=== PATIENT | female | born 1935 | race Caucasian/White ===

== ENCOUNTER → 2023-11-18 12:22 | Outpatient (REF) | payer MEDICARE, SELFPAY | LOC: WOUND 12:22 | PROVIDERS: ATTENDING PHYSICIAN Surgery; FAMILY PHYSICIAN Internal Medicine | DX: S81.811A Laceration without foreign body, right lower leg, initial encounter (principal); L97.812 Non-pressure chronic ulcer of other part of right lower leg with fat layer exposed; I10 Essential (primary) hypertension; M31.6 Other giant cell arteritis; D64.9 Anemia, unspecified; X58.XXXA Exposure to other specified factors, initial encounter | CPT/HCPCS: 99214 ==

== ENCOUNTER 2023-11-24 13:39 | Inpatient (IN) | payer MEDICARE, SELFPAY ==
[2023-11-24] VITALS (16 sets, daily range): BP systolic 97–157; BP diastolic 44–92; PULSE 85–86; BMI 21.0
--- NOTE | 2023-11-24 10:02 | ED.GENMED ---
History of Present Illness
General
Chief Complaint: Weakness
Time Seen by Provider: 11/24/23 10:01
Travel History
Have you had any contact with someone who has COVID-19?: No
Do you have any symptoms of coronavirus? Fever > 100 degrees, chills, cough, shortness of breath, sore throat, loss of taste or smell, muscle aches, or headache?: No
History of Present Illness
History of Present Illness:
HPI: Patient presents due to weakness. This has been getting worse over the past week. She intermittently has diarrhea and recently took Imodium and now is been having some more constipation. She has had anemia in the past related to GI blood
loss. 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
EXAM:
GENERAL: The patient appears generally weak and debilitated
HEENT: Slightly dry oral mucosa, conjunctival
CARDIOVASCULAR: 2 out of 6 systolic murmur in the upper sternal borders, normal heart rate, regular rhythm, No chest wall tenderness
PULMONARY: No respiratory distress, breath sounds are clear and equal
ABDOMEN: Soft with no peritoneal signs, no tenderness, there is heme positive brown stool on digital rectal examination with firm stool noted in the rectal
NEUROLOGIC: Fair strength all extremities, no coordination deficits
PSYCHIATRIC: Appropriate mental status, normal insight and judgement
EXTREMITIES: Nontender, no edema, moves all extremities equally
SKIN: Appears pale
TIME OF INITIAL ENCOUNTER: 10 AM
NUMBER AND COMPLEXITY OF PROBLEMS ADDRESSED AT THE ENCOUNTER
� Chronic conditions affecting care: Hypothyroid, high blood pressure, hyperlipidemia, has had giant cell arteritis
� Acute Exacerbation and/or Progression of Chronic Illness: This is an acute problem
� Differential Diagnosis includes: Anemia, failure to thrive, viral syndrome, electrolyte normality, thyroid disease
AMOUNT AND/OR COMPLEXITY OF DATA TO BE REVIEWED AND ANALYZED
� I performed an independent evaluation of and my interpretation is:
EKG: Sinus 81, leftward axis deviation, nonspecific ST abnormality, no significant change from 06/15/2022
CT:
X-rays:
Laboratory Studies: White count 14.1, hemoglobin 7.8, sed rate is 123, bicarb 10, BUN 44, creatinine 1.2, iron 33
Other:
� Review of other/old records: The patient was admitted here in June 2022 with peptic ulcer disease causing occult GI blood loss and required 1 unit of blood transfusion at that time (hemoglobin at that time started to 8.8
then dropped to 7.5 and most recent hemoglobin in [facility] is 12.1 on 02/14/2023)
� Clinical information was obtained by an independent historian: I spoke to daughter at bedside as well as
� Prescriptions/Medications Considered but not given:
� Further testing considered but not performed:
RISK OF COMPLICATIONS AND/OR MORBIDITY OR MORTALITY OF PATIENT MANAGEMENT
� Social determinants of health affecting care: Lives at home
� Discussion with other providers: Hospitalist for admission 11 AM
� Escalation of care including admission/observation vs risk of discharge considered: Family is concerned of dehydration�was given some IV fluids. She has had GI bleed in the past resulting in anemia�Labs are obtained. At 10:45
AM, signed informed consent for blood transfusion.
Past History
Past History
ED Past Medical History: HTN, Hypercholesterolemia, Other (Giant cell arteritis) and Other ( rheumatic fever, hyperthyroidism, macular degeneration, cataracts, ocular migraine.)
ED Past Surgical History: Orthopedic (Bilateral hip replacements) and Urological (Right Kidney wired in place)
Social History
Tobacco: Non-smoker
Alcohol: Daily (seagram's 7 2-3 oz)
Personal:
Living: with family
Family History
Family History: Other (Breast cancer. Father with a stroke)
Phy Exam
Physical Exam
Physical Exam:
See HPI
Course
Orders/Labs/Results
Orders:
Orders
11/24/23 10:12
0.9% Sodium Chloride 500 ml [Nss] 500 ml IV BOLUS
11/24/23 10:22
Add On- LAB Urgent
Tests Added?: SED Rate please
Type+Screen Urgent
Basic Metabolic Panel Urgent
Complete Blood Count/With Diff Urgent
Erythrocyte Sed Rate Urgent
Comment: SED RATE ADDED ON BY FLOOR 10:20AM 11-24-23
Ferritin Urgent
Comment: IRON PANEL AND FERRITIN ADDED ON BY FLOOR 10:40AM 11-24-23
Iron Urgent
Magnesium Urgent
TSH Reflex To Free T4 Urgent
11/24/23 10:34
* Blood Bank Products Urgent
Blood Bank Products: *Packed RBC Leuko(PRBC's)
Quantity: 1
Transfuse Today: Yes
Reason: Anemia
11/24/23 10:35
Pantoprazole [Protonix IV] 80 mg IV NOW STA
11/24/23 10:40
Add On- LAB Urgent
Tests Added?: iron panel, ferritin
11/24/23 10:54
Diltiazem HCl [Cardizem] 10 mg IV NOW STA
MethylPREDNISolone PF [Solu-Medrol Pf] 125 mg IV NOW STA
11/24/23 11:00
Diltiazem 125 mg/125 ml Nss [Cardizem] 125 mg in 125 ml IV PER PROTOCOL
Initial dose in mg/hr, then titrate:: 10
Titrate to keep:: Heart rate 80-100 bpm
Titrate by mg/hr:: 5 mg/hr
Frequency of titrations (minutes):: 15
Maximum dose in mg/hr:: 15
11/24/23 11:07
Electrocardiogram (*1) Urgent
Reason for Study: Shortness of Breath
EKG- Treatment ONCE
Abnormal Lab Results
11/24/23
10:22
WBC 14.1 H 10^3/uL
(4.8-10.8)
RBC 2.22 L 10^6/uL
(4.20-5.40)
Hgb 7.8 L g/dL
(12.0-16.0)
Hct 22.6 L %
(37.0-47.0)
MCV 101.8 H fL
(81.0-99.0)
MCH 35.1 H pg
(27.0-31.0)
Plt Count 425 H 10^3/uL
(130-400)
Abs Immat Gran (auto) 0.1 H 10^3/uL
(0-0.05)
Absolute Neuts (auto) 11.9 H 10^3/uL
(1.4-6.5)
Absolute Lymphs (auto) 0.7 L 10^3/uL
(1.2-3.4)
Absolute Monos (auto) 1.2 H 10^3/uL
(0.1-0.6)
Immature Gran % 0.9 H %
(0-0.5)
Neutrophils % 84.2 H %
(42.2-75.2)
Lymphocytes % 5.3 L %
(20.5-51.1)
ESR 123 H mm/hour
(0-20)
Chloride 113 H mmol/L
(98-107)
Carbon Dioxide 10 L* mmol/L
(22-30)
BUN 44 H mg/dl
(7-17)
Creatinine 1.2 H mg/dL
(0.6-1.0)
Iron 33 L ug/dl
(37-170)
Crossmatch IS Only See Detail
11/24/23 10:22
11/24/23 10:22
Vital Signs
Initial and Last Documented VS:
Initial Vital Signs
Temp Pulse Resp BP Pulse Ox
98.9 F 95 16 107/62 98
11/24/23 09:53 11/24/23 09:53 11/24/23 09:53 11/24/23 09:53 11/24/23 09:53
Last Documented Vital Signs
Temp Pulse Resp BP Pulse Ox
98.9 F 95 16 107/62 98
11/24/23 09:53 11/24/23 09:53 11/24/23 09:53 11/24/23 09:53 11/24/23 09:53
*Critical Care Note
Total Time (30-74mins, 75-104mins- exclusive of procedures): Not Applicable
ED Attending Note
-
Portions of this chart may have been created with voice recognition software.� Occasional wrong word or��sound alike� substitutions may have occurred due to the inherent limitations of voice recognition software.
Discharge Plan
Departure
Patient Disposition: Admit
Date of Disposition: 11/24/23
Time of Disposition: 11:04
Presentation/result/management discussed w/ accepting MD/DO: Hospitalist
Discharge Problem:
Anemia due to GI blood loss
Prescriptions:
No Action
acetaminophen [Tylenol Extra Strength] 500 MG tablet
500 mg PO Q6HPRN PRN (Reason: mild pain)
simvastatin 40 MG tablet
40 mg PO QPM
vitamin E 400 UNIT capsule
400 unit PO DAILY@1200
xd-pzl-DS-Ou-Nw-pwlcvrg-lutein 1 EACH tablet
1 tab PO DAILY@1200
ascorbic acid (vitamin C) 500 MG capsule
500 mg PO DAILY@1200
alendronate 70 MG tablet
70 mg PO WE
cholecalciferol (vitamin D3) [Vitamin D3] 25 MCG capsule
25 mcg PO DAILY@1200
docosahexaenoic acid-epa 1 CAP capsule
1 cap PO DAILY@1200
Rhopressa 2.5 ML drops
1 drp BOTH EYES HS
prednisone 10 MG tablet
4 mg PO DAILY
aspirin 81 mg Tablet,Delayed Release (Dr/Ec)
81 mg PO DAILY@1200
dorzolamide-timolol 22.3-6.8 mg/mL drops
1 drp BOTH EYES BID
mupirocin 2 % ointment
1 applic TOPICAL BID
Rx Instructions:
Apply to legs
metoprolol succinate 25 MG tablet extended release 24 hr
12.5 mg PO DAILY
melatonin 10 mg Tablet
10 mg PO HS PRN (Reason: sleep)
tramadol 50 mg Tablet
25 mg PO Q6HPRN PRN (Reason: sev pain) 3 Days Qty: 15 0RF
sucralfate [Carafate] 100 mg/mL suspension
10 ml PO ACHS Qty: 1000 1RF
pantoprazole [Protonix] 40 mg tablet,delayed release (DR/EC)
40 mg PO BID 30 Days Qty: 60 1RF
Referrals:
Curtis Mary MD [Family Provider] -
Interventions
Interventions:
*ED COVID-19 Vaccine History Last Done: 11/24/23 09:53
[2023-11-24 10:27] LABS: % Basophils 0.2 % (0-2); % Eosinophils 0.7 % (0-6); % Immature Granulocytes 0.9 % (0-0.5); % Lymphocytes 5.3 % (20.5-51.1); % Monocytes 8.7 % (1.7-9.3); % Neutrophils 84.2 % (42.2-75.2); Absolute Eosinophils 0.1 10^3/uL (0-0.7); Absolute Immature Granulocytes 0.1 10^3/uL (0-0.05); Absolute Lymphocytes 0.7 10^3/uL (1.2-3.4); Absolute Monocytes 1.2 10^3/uL (0.1-0.6); Absolute Neutrophils 11.9 10^3/uL (1.4-6.5); Hematocrit 22.6 % (37.0-47.0); Hemoglobin 7.8 g/dL (12.0-16.0); Mean Corp Hgb Conc. 34.5 g/dL (33.0-37.0); Mean Corpuscular Hgb 35.1 pg (27.0-31.0); Mean Corpuscular Volume 101.8 fL (81.0-99.0); Mean Platelet Volume 9.3 fL (7.4-10.4); Nucleated Red Blood Cells % 0.1 %; Platelet Count 425 10^3/uL (130-400); Red Blood Cell Count 2.22 10^6/uL (4.20-5.40); Red Cell Dist. Width 14.5 % (11.5-14.5); White Blood Cell Count 14.1 10^3/uL (4.8-10.8)
[2023-11-24] MEDS: NSS 500 IV (10:31)
[2023-11-24 10:51] LABS: Blood Urea Nitrogen 44 mg/dl (7-17); Calcium 9.6 mg/dl (8.4-10.2); Carbon Dioxide 10 mmol/L (22-30); Chloride 113 mmol/L (98-107); Glucose 99 mg/dl (70-99); Magnesium 2.2 mg/dl (1.6-2.3); Potassium 3.6 mmol/L (3.5-5.1); Sodium 141 mmol/L (135-145); eGFR 43.54
[2023-11-24 10:54] LABS: Erythrocyte Sed Rate 123 mm/hour (0-20)
[2023-11-24 10:59] LABS: Iron 33 ug/dl (37-170)
[2023-11-24] MEDS: PROTONIX IV 80 MG IV (11:51)
--- NOTE | 2023-11-24 12:32 | HPS.HSE ---
Family Physician
-
Family Physician: Curtis Mary
Chief Complaint
-
Weakness and fatigue
History of Present Illness
Patient is an 80 female with a past medical cancer arthritis on chronic prednisone, hypertension, history of cirrhosis, history of peptic ulcer disease who presents to the emergency department with 1 week of worsening weakness and fatigue and
illness.
Family provided history at the bedside although patient was communicative as well. Reported that she had a peptic ulcer requiring transfusion in 2021. Last CBC was about 8 months ago with hemoglobin of 12.1. She has been on prednisone for GCA
chronically and is currently taking 3 mg daily. Family reported that she has been declining over the last week with increasing dyspnea on exertion. Patient reports feeling weak. She reports lightheadedness and dizziness. She denies palpitations.
She denies chest pain. Patient was recently treated for a large lower extremity excoriative wound. She denies abdominal pain, nausea, vomiting. She does have intermittent constipation and diarrhea. She is unable to tell whether there is pain
any hematochezia. Family denies any melena. She is not on any supplementation for iron but I believe she has been chronically anemic. Patient is currently on ibuprofen 3 times daily to manage chronic pain. Denies aspirin.
On arrival in the emergency department blood pressure was 102/62, pulse was 95, she was satting 98% on room air. She was afebrile. ECG shows normal sinus rhythm with a rate of [address] or T wave changes. Blood count remarkable for
hemoglobin of 7.8 and a platelet count of 425. Chemistries notable for a BUN of 44, creatinine of 1.2 and bicarb of 10. The anion gap was 18. ESR was elevated 123. Rectal exam revealed positive Hemoccult.
Medical History
Past Medical History
Past Medical History: Reports HTN
Additional Past Medical History:
Giant cell arthritis with vision loss
Duodenal ulcer 2021
Past Surgical History: Reports None
Social History
Tobacco: Non-smoker
Alcohol: None
Drug: None
Personal:
Living: With Family
Employment: Retired
Family History
Family History: Not pertinent
Allergies / Home Medications
Allergies reflects when Allergies were last updated in [employer].
Home Medications with original date entered in [employer]
Allergy/Medication List:
Allergies
Allergy/AdvReac Type Severity Reaction Status Date / Time
Penicillins Allergy Hives Verified 11/24/23 09:56
Sulfa (Sulfonamide Allergy VISUAL Verified 11/24/23 09:56
Antibiotics) DISTURBANCES
Home Medications
acetaminophen 500 mg tablet (Tylenol Extra Strength) 500 mg PO Q6HPRN PRN mild pain 09/27/11
simvastatin 40 mg tablet 40 mg PO QPM High cholesterol 09/27/11
vitamin E 268 mg (400 unit) capsule 400 unit PO DAILY@1200 Supplement 09/27/11
alendronate 70 mg tablet 70 mg PO WE osteoporosis 06/18/21
cholecalciferol (vitamin D3) 25 mcg (1,000 unit) capsule (Vitamin D3) 25 mcg PO DAILY@1200 Supplement 06/18/21
netarsudil 0.02 % eye drops (Rhopressa) 1 drp BOTH EYES HS Eye condition 06/18/21
prednisone 3 mg tablet PO DAILY Anti-inflammatory 06/18/21
dorzolamide 22.3 mg-timolol 6.8 mg/mL eye drops 1 drp BOTH EYES BID Eye condition 06/15/22
metoprolol succinate 12.5 mg tablet,extended release 24 hr 12.5 mg PO DAILY Blood pressure 06/15/22
Review of Systems
-
History Source: Patient
Constitutional: Reports Fatigue
EENT: Reports No Symptoms
Respiratory: Reports No Symptoms
Cardiac: Reports No Symptoms
Abdomen/GI: Reports Diarrhea and Constipated
: Reports No Symptoms
Musculoskeletal: Reports Joint Pain
Skin: Reports Other (Right lower extremity wound)
Neurological: Reports Weakness
Endocrine: Reports No Symptoms
Psych: Reports No Symptoms
Physical Exam
Vital Signs
Vital Signs
Temp Pulse Resp BP Pulse Ox
97.9 F 91 20 109/62 98
11/24/23 12:28 11/24/23 12:28 11/24/23 12:28 11/24/23 12:28 11/24/23 12:28
Physical Exam
General: Comfortable and Conversant
HEENT: NormoCephalic, Moist mucous membranes and PERRLA
Respiratory: Clear
Cardiac: S1/S2 and Regular Rhythm
Breast: Deferred by me
GI: Soft, Non Tender, Non Distended and Normal Bowel Sounds
Rectal: Hem Positive
Genito-urinary: Deferred by me
Musculoskeletal: No Clubbing, No Cyanosis and No Edema
Skin: Warm and Lesions
Neuro: AO x 3
Hematologic/Lymphatic: No Lymphadenopathy
Psych: Calm
Laboratory Results
-
11/24/23 10:22
11/24/23 10:22
Laboratory Results
pH Cancelled 11/24/23 10:53
pCO2 Cancelled 11/24/23 10:53
pO2 Cancelled 11/24/23 10:53
HCO3 Cancelled 11/24/23 10:53
Data Reviewed
-
Medical Tests (Nuc Med, Echo, EKG etc): Image Personally Visualized and interpreted
Lab Data: Labs Reviewed by me
Old Records: Reviewed
Impression/Plan
-
IMPRESSION:
PLAN:
1. Symptomatic Anemia and GI bleed - Weakness likely secondary to symptomatic anemia. Hgb 7.8 down from 12. Iron is low. + Occult. Suspect exacerbation of peptic/duodenal ulcer from chronic daily NSAIDs and steroids or possibly gastritis.
Hemodynamically stable at this time.
- admit to telemetry
- transfuse for goal Hgb > 8
- trend H& H q 8 for now
- Protonixgtt
- holding ibuprofen
- clear liquid as tolerated
- hydration with LR
- d/w GI, EGD in am
2. Giant cell arthritis - Patient on chronic steroids 3mg. Last ESR was 20 in August. Now 123. Weakness and fatigue but no headache, new vision changes or joint pains.
- continue prednisone 3 for
- will consult rheum (patient follows with Dr. Cortés)
3. Hypovolemia - Decreased PO and slow blood loss. Renal function slightly worsened from baseline
- LR at 80ml/hr for now
- hold beta blockade
DVT PPX: w/ SCDs for now
Codes Status: DNR
--- NOTE | 2023-11-24 13:38 | CON.GI ---
Consultation
-
Date/Time Consultation Requested: 11/24/23 10:39am
Date/Time Consultation Performed: 11/24/23 1:39pm
Requesting Provider: Rogelio Echevarria
Performing Provider: Marcus Adamson
Reason for Consultation: Acute blood loss anemia
Medical History
Chief Complaint / HPI
Chief Complaint: Acute blood loss anemia
History of Present Illness:
Patient is an 87-year-old female who presents with weakness and a hemoglobin of 7.8. Her stool in the ER was heme positive brown. She has a history of GI bleed due to a duodenal ulcer in 2021 while she was taking Aleve. She has been taking
ibuprofen 400 mg about 2-3 times per day over the last several weeks for leg pain. She had a fall about a week ago and injured her right leg and is currently getting treatment at the wound center. Her also reports she has had constipation
problems after she took Imodium when she had diarrhea. She has not had bowel movement for the last 6 days. She reports some upper abdominal pain around her ribs bilaterally.
Past Medical History
Past Medical History: HTN, Hypercholesterolemia and Other (Giant cell arteritis on prednisone and Actemra infusions, GI bleed due to DU while taking Aleve in 2021)
Past Surgical History: Other (b/l hip replacement 2007 right, 2012, left, tonsilectomy, cataracts removed 2009)
Social History
Tobacco: Non-Smoker
Alcohol: None
Drug: None
Family History
Family History: Reviewed & Not Pertinent
Allergies / Home Medications
Allergy/AdvReac Type Severity Reaction Status Date / Time
Penicillins Allergy Hives Verified 11/24/23 09:56
Sulfa (Sulfonamide Allergy VISUAL Verified 11/24/23 09:56
Antibiotics) DISTURBANCES
Medication Instructions Recorded
acetaminophen 500 mg tablet 1,000 mg PO Q4H 09/27/11
(Tylenol Extra Strength)
simvastatin 40 mg tablet 40 mg PO QPM High cholesterol 09/27/11
alendronate 70 mg tablet 70 mg PO WE@0800 osteoporosis 06/18/21
aspirin 81 mg tablet,delayed 81 mg PO DAILY Blood clot 06/15/22
release prevention/tx
dorzolamide 22.3 mg-timolol 6.8 1 drp BOTH EYES BID Eye condition 06/15/22
mg/mL eye drops
metoprolol succinate 25 mg 12.5 mg PO DAILY Blood pressure 06/15/22
tablet,extended release 24 hr
Metamucil 3 tab PO BID 11/24/23
docusate sodium 100 mg capsule 100 mg PO DAILY 11/24/23
(Colace)
ibuprofen 200 mg tablet 400 mg PO TIDPRN PRN mild pain 11/24/23
loperamide 2 mg capsule 4 mg PO BIDPRN PRN diarrhea 11/24/23
netarsudil 0.02 % eye drops 1 drp BOTH EYES DAILY@2100 11/24/23
(Rhopressa)
polyethylene glycol 3350 17 gram 17 g PO DAILY PRN constipation 11/24/23
oral powder packet (Miralax)
prednisone 1 mg tablet 3 mg PO DAILY 11/24/23
therapeutic multivitamin 1 tab PO DAILY 11/24/23
Review of Systems
-
All other systems: A 12 pt ROS was Negative except as stated above in HPI
Vital Signs
Temp Pulse Resp BP Pulse Ox
98.3 F 89 19 116/63 99
11/24/23 12:46 11/24/23 12:46 11/24/23 12:46 11/24/23 12:46 11/24/23 12:46
Physical Exam
Exam
General: No Apparent Distress
HEENT: Normocephalic and Atraumatic
Respiratory: Non Labored Respirations
GI: Soft, Non Distended and Tender
Results
WBC 14.1 10^3/uL (4.8-10.8) H 11/24/23 10:22
Hgb 7.8 g/dL (12.0-16.0) L 11/24/23 10:22
Hct 22.6 % (37.0-47.0) L 11/24/23 10:22
MCV 101.8 fL (81.0-99.0) H 11/24/23 10:22
Plt Count 425 10^3/uL (130-400) H 11/24/23 10:22
Absolute Neuts (auto) 11.9 10^3/uL (1.4-6.5) H 11/24/23 10:22
Sodium 141 mmol/L (135-145) 11/24/23 10:22
Potassium 3.6 mmol/L (3.5-5.1) 11/24/23 10:22
Chloride 113 mmol/L (98-107) H 11/24/23 10:22
Carbon Dioxide 10 mmol/L (22-30) L* 11/24/23 10:22
BUN 44 mg/dl (7-17) H 11/24/23 10:22
Creatinine 1.2 mg/dL (0.6-1.0) H 11/24/23 10:22
Calcium 9.6 mg/dl (8.4-10.2) 11/24/23 10:22
Prior GI Procedures:
EGD:
06/15/22 EGD- Schatzki's ring. Blood clot in stomach. 25mm DU in bulb with pigmented material
10/01/22 EGD- Antral erythema bx neg HP. No ulcer in bulb. Deformity in pylorus from prior ulcer
Assessment / Plan
-
Summary: 88yo female presents with weakness, anemia Hgb 7.8 and heme positive brown stool. She has been taking ibuprofen 400mg BID-TID for last several weeks for leg pain. She had a fall and injured her R leg. She is also on 3mg prednisone daily
for GCA. She had similar presentation in June 2022 found to have DU while taking Aleve. Repeat EGD in September 2022 showed resolution of ulcer
Impression:
Acute blood loss anemia. Heme positive
NSAID use
Hx DU due to Aleve
GCA on prednisone 3mg daily
Recommendations:
NPO
Keep on protonix gtt
Plan EGD tomorrow. Likely NSAID ulcer causing GI bleed
-
-
Thank you for consultation and allowing me to participate in the patient's care. Please call the personal care attendant GI physician during the after hours with any questions or concerns.
[2023-11-24] MEDS: TYLENOL 650 MG PO ×2 (15:24→21:55)
[2023-11-24] MEDS: D5LR 1000 IV (17:43)
--- NOTE | 2023-11-24 18:20 | PTCARENOTE ---
Dr. Cervantes made aware pt. with c/o 7/10 pain in her right lower leg after wound care given and that pt. states she drinks 5 oz of alcohol per night to go to sleep. New orders to follow. Will pass on to oncoming shift nurse.
[2023-11-24 18:23] LABS: Hematocrit 27.3 % (37.0-47.0); Hemoglobin 9.4 g/dL (12.0-16.0)
[2023-11-24 18:56] LABS: Blood Urea Nitrogen 33 mg/dl (7-17); Carbon Dioxide 8 mmol/L (22-30); Chloride 119 mmol/L (98-107); Estimated Creatinine Clearance 37 ml/min; Glucose 83 mg/dl (70-99); Potassium 3.6 mmol/L (3.5-5.1); Sodium 140 mmol/L (135-145); eGFR > 60.00
[2023-11-24] MEDS: ULTRAM 50 MG PO (19:19)
[2023-11-24] MEDS: SODIUM BICARBONATE 1150 MEQ IV (20:09)
[2023-11-24] MEDS: COSOPT EYE DROPS 1 DROP BOTH EYES (20:10)
--- NOTE | 2023-11-24 20:38 | PTCARENOTE ---
ALTERATIONS SUPERVISOR notified of critical carbon dioxide of 8. New orders noted.
[2023-11-24] MEDS: RESTORIL 7.5 MG PO (21:56)
[2023-11-24] MEDS: PROTONIX 100 IV (23:50)
[2023-11-24 23:54] LABS: Blood Urea Nitrogen 30 mg/dl (7-17); Carbon Dioxide 16 mmol/L (22-30); Chloride 115 mmol/L (98-107); Estimated Creatinine Clearance 48 ml/min; Glucose 123 mg/dl (70-99); Potassium 3.4 mmol/L (3.5-5.1); Sodium 142 mmol/L (135-145); eGFR > 60.00
[2023-11-25] VITALS (10 sets, daily range): BP systolic 20–178; BP diastolic 63–111; PULSE 83–114; O2SAT 98
[2023-11-25] MEDS: KCL 160 MEQ IV (00:29)
[2023-11-25 01:56] LABS: Hematocrit 28.3 % (37.0-47.0); Hemoglobin 9.9 g/dL (12.0-16.0); Mean Corpuscular Hgb 32.8 pg (27.0-31.0); Mean Corpuscular Volume 93.7 fL (81.0-99.0); Mean Platelet Volume 9.2 fL (7.4-10.4); Platelet Count 404 10^3/uL (130-400); Red Blood Cell Count 3.02 10^6/uL (4.20-5.40); Red Cell Dist. Width 17.9 % (11.5-14.5); White Blood Cell Count 12.9 10^3/uL (4.8-10.8)
[2023-11-25 02:14] LABS: INR 1.12; PT 14.2 Sec (11.4-14.6)
[2023-11-25 02:21] LABS: Blood Urea Nitrogen 25 mg/dl (7-17); Calcium 8.9 mg/dl (8.4-10.2); Carbon Dioxide 16 mmol/L (22-30); Chloride 116 mmol/L (98-107); Estimated Creatinine Clearance 48 ml/min; Glucose 99 mg/dl (70-99); Potassium 3.6 mmol/L (3.5-5.1); Sodium 140 mmol/L (135-145); eGFR > 60.00
--- NOTE | 2023-11-25 05:53 | PTCARENOTE ---
Patient with no urine output at 0000, bladder scanned for 614 mls, order obtained for straight cath with 600 output. Bladder scanned again this a.m. for 657, straight cathed for 650. Patient tolerated procedure. Urine clear yellow.
[2023-11-25] MEDS: SODIUM BICARBONATE 1150 MEQ IV ×2 (08:22→22:02)
[2023-11-25] MEDS: COSOPT EYE DROPS 1 DROP BOTH EYES ×2 (08:23→19:59)
[2023-11-25] MEDS: TYLENOL 650 MG PO ×3 (08:23→22:02)
[2023-11-25] MEDS: DELTASONE PO (08:34)
--- NOTE | 2023-11-25 09:10 | W.PN.HOSP.TC ---
Today's Communication/Plan
-
Monitor hemoglobin
EGD
Assessment / Plan
Assessment / Plan
Gen-AAOx3, NAD, very frail
HEENT-NC, AT, anicteric, clear oral mm
Neck-supple
CV-reg, no M, +S1/S2
Lungs-clear B/L
Abd-soft, NT, ND
Ext-no edema
Musculoskeletal-no cyanosis, clubbing
Skin-warm and dry
Neuro-grossly non-focal
Psych-calm, cooperative
LOLIS -due to volume depletion. Improved. High anion gap metabolic acidosis noted, improving. Bicarbonate 16 today, anion gap 8.
Symptomatic acute blood loss anemia -transfused 1 unit PRBC 11/23. Hemoglobin improved from 7.8-9.9. Etiology of blood loss anemia likely due to GI bleed in the setting of heme positive stool.
Acute GI bleed -likely due to use of NSAIDs, steroids. GI consulted, awaiting EGD. Continue IV Protonix. Stop NSAIDs.
History of duodenal ulcer -due to use of NSAIDs.
Hypokalemia -improving.
Giant cell arteritis -on chronic prednisone. 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 Can hold off on rheumatology consult for now, recommend outpatient follow-up.
Osteoporosis - on weekly alendronate.
DNR
Anticipated Discharge: > 48 hours
Subjective/Interval History
-
Date of Service: November 25, 2023
Patient seen and examined. No complaints currently.
Objective Data
-
Labs:
Laboratory Results
11/24/23 11/25/23 11/25/23
23:31 01:50 01:50
WBC 12.9 H
Hgb Cancelled 9.9 L
Hct Cancelled
Plt Count
PT
INR
Sodium 142
Potassium 3.4 L
Chloride 115 H
Carbon Dioxide 16 L
BUN 30 H
Creatinine 0.7
Glucose 123 H
Calcium 9.0
11/25/23
01:50
WBC
Hgb
Hct 28.3 L
Plt Count 404 H
PT 14.2
INR 1.12
Sodium 140
Potassium 3.6
Chloride 116 H
Carbon Dioxide 16 L
BUN 25 H
Creatinine 0.7
Glucose 99
Calcium 8.9
Vital Signs:
Vital Signs
Temp Pulse Resp BP Pulse Ox
99.3 F 99 16 152/88 99
11/25/23 07:50 11/25/23 07:50 11/25/23 07:50 11/25/23 07:50 11/25/23 07:50
I&O
11/24/23 11/25/23 11/26/23
06:59 06:59 06:59
Intake Total 970 / 970 1360 / 1360
Output Total 1250 / 1250
Balance -280 / -280 1360 / 1360
Review of Systems
-
History Source: Patient
All other systems: Reviewed and negative
--- NOTE | 2023-11-25 10:39 | W.PN.UPDATE ---
Update Note
Progress Note Update
EGD done
10mm cratered DU in bulb with pigmented material in base
Edge of ulcer was friable with contact bleeding, no bleeding from ulcer base
REC:
Resume diet
Protonix BID x 2 months
Avoid NSAIDs
[2023-11-25] MEDS: FLOMAX 0.400000000000000022 MG PO (11:43)
[2023-11-25] MEDS: PROTONIX IV (11:43)
[2023-11-25] MEDS: ANESTHETIC LOZENGE 1 LOZENGE PO (15:31)
--- NOTE | 2023-11-25 16:45 | CM ---
CM following re: d/c planning
Chart reviewed
CM met with the patient and her spouse at bedside; IA completed
Pt reports she and her spouse [facility]
FACILITY TECHNICIAN patient is assisted at baseline with adls & mobility
Pt has been to [facility] for rehab, has had VN however doesn't recall the agency, and has the following DME items: a raised toilet seat, r/w, chair lift, & bsc
Pt has prescription coverage and rx's are filled at [facility] on [address] [place]
Pt PCP-Curtis Mary
Per PT/OT margie. post d/c recommendation is for SNF
CM will speak with the patient's spouse to see if he'd like a referral sent to [facility] and if he'd like any additional referrals placed
CM will continue to follow patient progress and assist with continued needs at d/c as indicated
PLAN; d/c to SNF when stable
[2023-11-25] MEDS: ULTRAM 50 MG PO (18:35)
[2023-11-25] MEDS: PROTONIX 40 MG PO (19:59)
[2023-11-25] MEDS: RESTORIL 7.5 MG PO (22:02)
[2023-11-26 03:17] VITALS: BP 112/68
[2023-11-26 06:00] VITALS: BMI 20.9
[2023-11-26 07:00] VITALS: BP 111/64
[2023-11-26] MEDS: TYLENOL 650 MG PO ×2 (07:11→16:49)
[2023-11-26] MEDS: DELTASONE 3 MG PO (07:55)
[2023-11-26] MEDS: COSOPT EYE DROPS 1 DROP BOTH EYES ×2 (07:55→21:34)
[2023-11-26] MEDS: PROTONIX 40 MG PO ×2 (07:55→21:34)
[2023-11-26] MEDS: FLOMAX 0.400000000000000022 MG PO (07:55)
[2023-11-26 08:15] LABS: % Basophils 0.3 % (0-2); % Eosinophils 1.4 % (0-6); % Immature Granulocytes 0.5 % (0-0.5); % Lymphocytes 11.2 % (20.5-51.1); % Monocytes 11.4 % (1.7-9.3); % Neutrophils 75.2 % (42.2-75.2); Absolute Eosinophils 0.1 10^3/uL (0-0.7); Absolute Immature Granulocytes 0.1 10^3/uL (0-0.05); Absolute Lymphocytes 1.1 10^3/uL (1.2-3.4); Absolute Monocytes 1.1 10^3/uL (0.1-0.6); Absolute Neutrophils 7.1 10^3/uL (1.4-6.5); Hematocrit 26.5 % (37.0-47.0); Hemoglobin 9.3 g/dL (12.0-16.0); Mean Corp Hgb Conc. 35.1 g/dL (33.0-37.0); Mean Corpuscular Hgb 32.6 pg (27.0-31.0); Mean Platelet Volume 9.5 fL (7.4-10.4); Nucleated Red Blood Cells % 0 %; Platelet Count 391 10^3/uL (130-400); Red Blood Cell Count 2.85 10^6/uL (4.20-5.40); Red Cell Dist. Width 17.7 % (11.5-14.5); White Blood Cell Count 9.5 10^3/uL (4.8-10.8)
[2023-11-26 08:26] LABS: Blood Urea Nitrogen 11 mg/dl (7-17); Calcium 8.1 mg/dl (8.4-10.2); Carbon Dioxide 29 mmol/L (22-30); Chloride 102 mmol/L (98-107); Estimated Creatinine Clearance 56 ml/min; Glucose 107 mg/dl (70-99); Potassium 3.1 mmol/L (3.5-5.1); Sodium 136 mmol/L (135-145); eGFR > 60.00
--- NOTE | 2023-11-26 09:01 | W.PN.HOSP.TC ---
Today's Communication/Plan
-
Discharge planning
Assessment / Plan
Assessment / Plan
Gen-AAOx3, NAD, very frail
HEENT-NC, AT, anicteric, clear oral mm
Neck-supple
CV-reg, no M, +S1/S2
Lungs-clear B/L
Abd-soft, NT, ND
Ext-no edema
Musculoskeletal-no cyanosis, clubbing
Skin-warm and dry
Neuro-grossly non-focal
Psych-calm, cooperative
LOLIS -due to volume depletion. Improved. High anion gap metabolic acidosis noted, improving. Bicarbonate 16 today, anion gap 8.
Symptomatic acute blood loss anemia -transfused 1 unit PRBC 11/23. Hemoglobin improved to 9.3. Stable. Etiology of blood loss anemia likely due to GI bleed in the setting of heme positive stool.
Acute GI bleed -likely due to use of NSAIDs, steroids. EGD demonstrated 10 mm duodenal ulcer in bulb with contact bleeding around the edge. Continue Protonix twice daily for 2 months as per GI. Avoid NSAIDs. Discussed with patient and .
Follow-up as outpatient with GI.
History of duodenal ulcer -due to use of NSAIDs.
Hypokalemia -improving.
Giant cell arteritis -on chronic prednisone. 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 Can hold off on rheumatology consult for now, recommend outpatient follow-up.
Osteoporosis - on weekly alendronate.
DNR
Dispo -medically stable for discharge to SNF. Case management aware. Updated on the phone.
Anticipated Discharge: Within 24 hours
Subjective/Interval History
-
Date of Service: November 26, 2023
Patient seen and examined. No complaints.
Objective Data
-
Labs:
Laboratory Results
11/26/23
06:44
WBC 9.5
Hgb 9.3 L
Hct 26.5 L
Plt Count 391
Sodium 136
Potassium 3.1 L
Chloride 102
Carbon Dioxide 29
BUN 11
Creatinine 0.6
Glucose 107 H
Calcium 8.1 L
Vital Signs:
Vital Signs
Temp Pulse Resp BP Pulse Ox
98.7 F 85 18 111/64 97
11/26/23 07:00 11/26/23 07:00 11/26/23 07:00 11/26/23 07:00 11/26/23 07:00
I&O
11/25/23 11/26/23 11/27/23
06:59 06:59 06:59
Intake Total 970 / 970 3760 / 3760
Output Total 1250 / 1250 1100 / 1100
Balance -280 / -280 2660 / 2660
Review of Systems
-
History Source: Patient
All other systems: Reviewed and negative
[2023-11-26 09:25] LABS: Magnesium 1.8 mg/dl (1.6-2.3)
[2023-11-26 09:30] VITALS: BP 108/48; BP 121/63; PULSE 81; O2SAT 95
[2023-11-26] MEDS: KCL 40 MEQ PO (10:18)
[2023-11-26] MEDS: MIRALAX 17 GRAMS PO (10:18)
[2023-11-26] MEDS: ULTRAM 50 MG PO ×2 (10:21→21:34)
--- NOTE | 2023-11-26 10:56 | W.PN.GI.CBS2 ---
Addendum entered and electronically signed by Danny Heath MD 11/26/23 18:36:
I saw and examined the patient.
The SENIOR MANUFACTURING TEST ENGINEER or PA's note was reviewed and I agree with the note.
Comment: 88-year-old female presenting with iron deficiency anemia with brown positive stool. Found to have duodenal ulcer likely secondary to NSAIDs and prednisone. Hemoglobin is stable, no further bleeding. Discussed with patient and family at
bedside, recommend avoiding NSAIDs, continue PPI twice daily twice a day for 2 months then daily indefinitely. Okay from GI point of view for discharge. GI will sign off. Please call with any questions or issues.
Original Note:
Today's Communication / Plan
-
PPI twice daily x 2 months then daily
Solid diet
Assessment / Plan
-
Summary: 88yo female presents with weakness, anemia Hgb 7.8 and heme positive brown stool. She has been taking ibuprofen 400mg BID-TID for last several weeks for leg pain. She had a fall and injured her R leg. She is also on 3mg prednisone daily
for GCA. She had similar presentation in June 2022 found to have DU while taking Aleve. Repeat EGD in September 2022 showed resolution of ulcer
Impression:
Acute GI bleed secondary to duodenal ulcer in bulb
Acute blood loss anemia. Heme positive
NSAID use
GCA on prednisone 3mg daily
Recommendations:
Continue pantoprazole 40 mg p.o. twice daily x 2 months. Patient will then be on long-term steroids. Patient has chronic GERD symptoms. Discussed with patient, [id number] who is an RN and patient . Would prefer to stay on PPI
long-term daily.
To discuss with director banking alternate pain management recommendations. Avoid NSAIDs.
To start solid diet this morning.
Subjective
Subjective
Date of Service: November 26, 2023
Patient with no current GI complaints. No bowel movement. Hemoglobin currently 9.3 down from 9.9 yesterday. Patient status post EGD yesterday with 10 mm duodenal ulcer in bulb with contact bleeding around edge. Discussed with patient and
at length to avoid NSAIDs. Patient on chronic prednisone due to rheumatological issues as well as giant cell arteritis. To discuss with rheumatology pain control in future as well.
Objective
Data Reviewed
Laboratory Data:
Laboratory Results
11/26/23 06:44
11/26/23 06:44
Laboratory Results
PT 14.2 Sec (11.4-14.6) 11/25/23 01:50
INR 1.12 11/25/23 01:50
Magnesium 1.8 mg/dl (1.6-2.3) 11/26/23 06:44
Vital Signs and I&O:
Vital Signs
Temp Pulse Resp BP Pulse Ox
98.7 F 85 18 111/64 97
11/26/23 07:00 11/26/23 07:00 11/26/23 07:00 11/26/23 07:00 11/26/23 07:00
I&O
11/25/23 11/26/23 11/27/23
06:59 06:59 06:59
Intake Total 970 / 970 3760 / 3760
Output Total 1250 / 1250 1100 / 1100
Balance -280 / -280 2660 / 2660
Physical Exam
Physical Exam
HEENT: Anicteric
Cardiology: Normal Sinus Rhythm
Pulmonary: Clear
GI: Soft, Non Distended, Non Tender and Normal Bowel Sounds
Neuro: Non Focal
--- NOTE | 2023-11-26 11:15 | WOUNDNOTE ---
WON RN note: Patient admitted with anemia due to GI bleed.
See H&P for complete history.
PMH: Scoliosis,giant cell arteritis, HTN, duodenal ulcer, osteoarthritis, psoriasis, B/L hip replacements, leg wounds.
Wound Location and type/assessment: Patient admitted with: Laceration to R leg s/p fall, seen recently at [facility]. Reviewed current wound care with nurse Germania at wound center. at bedside confirmed he has been doing wound care and
applying Tubigrip daily. Wound is clean at base with red erythema surrounding, moderate serosanguineous drainage, no odor. Dry skin on both legs, fragile skin is on chronic steroids. Residual psoriasis on L dorsal foot. Sacrum and heels are
blanchable pink.
Appetite: Good.
Pressure redistribution devices in place: Accumax, patient sitting in chair currently. Asked PCT to find a foot stool and pillow so patient can elevate legs while sitting in chair.
Plan: Applied Vaseline to dry skin on both legs, will order mineral oil. R leg wound applied adaptic, abd pad and audie, can add alginate over adaptic for increased drainage. change daily and prn drainage. Tubigrip knee high daily.
Will confirm orders with hospitalist and update nurse. Updated care plan and will follow as needed.
Note to case management of equipment requested for discharge: VN if family wants.
Recommend follow up at wound care center upon discharge.
[2023-11-26 15:00] VITALS: BP 117/63
--- NOTE | 2023-11-26 15:49 | CM ---
CM following re: d/c planning
Chart reviewed
Pt is medically stable for d/c pending insurance auth
Several referrals placed via care port as SNF continues to be appropriate
Out of referrals placed, many are not in par with the patient's insurance
CM did call and speak with the fire safety director at [facility] who will review the clinicals and verify insurance benefit to see if she can offer the patient a bed; also Nay at [facility] has also offered the patient a bed
Wound care is following the patient while in house and has requested that the patient f/u with [facility] as outpatient
CM will continue to assist with d/c planning and await for referral to be reviewed by [facility] which is the patient & family's 1st choice
PLAN; d/c to SNF pending insurance auth
[2023-11-26] MEDS: RESTORIL 7.5 MG PO (21:34)
[2023-11-26 23:46] VITALS: BP 122/71
[2023-11-27 07:00] VITALS: BP 163/81
[2023-11-27 08:02] LABS: % Basophils 0.2 % (0-2); % Eosinophils 1.5 % (0-6); % Immature Granulocytes 0.7 % (0-0.5); % Lymphocytes 11.6 % (20.5-51.1); % Monocytes 12.2 % (1.7-9.3); % Neutrophils 73.8 % (42.2-75.2); Absolute Eosinophils 0.1 10^3/uL (0-0.7); Absolute Immature Granulocytes 0.1 10^3/uL (0-0.05); Absolute Lymphocytes 1.1 10^3/uL (1.2-3.4); Absolute Monocytes 1.2 10^3/uL (0.1-0.6); Absolute Neutrophils 6.9 10^3/uL (1.4-6.5); Hematocrit 27.4 % (37.0-47.0); Hemoglobin 9.3 g/dL (12.0-16.0); Mean Corp Hgb Conc. 33.9 g/dL (33.0-37.0); Mean Corpuscular Hgb 32.7 pg (27.0-31.0); Mean Corpuscular Volume 96.5 fL (81.0-99.0); Mean Platelet Volume 9.4 fL (7.4-10.4); Nucleated Red Blood Cells % 0 %; Platelet Count 389 10^3/uL (130-400); Red Blood Cell Count 2.84 10^6/uL (4.20-5.40); Red Cell Dist. Width 17.5 % (11.5-14.5); White Blood Cell Count 9.4 10^3/uL (4.8-10.8)
[2023-11-27 08:14] LABS: Blood Urea Nitrogen 13 mg/dl (7-17); Calcium 8.2 mg/dl (8.4-10.2); Carbon Dioxide 28 mmol/L (22-30); Chloride 104 mmol/L (98-107); Estimated Creatinine Clearance 56 ml/min; Glucose 101 mg/dl (70-99); Potassium 3.4 mmol/L (3.5-5.1); Sodium 137 mmol/L (135-145); eGFR > 60.00
[2023-11-27] MEDS: TYLENOL 650 MG PO ×2 (09:11→16:01)
[2023-11-27] MEDS: FLOMAX 0.400000000000000022 MG PO (09:12)
[2023-11-27] MEDS: DELTASONE 3 MG PO (09:12)
[2023-11-27] MEDS: COSOPT EYE DROPS 1 DROP BOTH EYES ×2 (09:14→20:14)
[2023-11-27] MEDS: HYDROPHOR 1 APPLIC TOPICAL (09:15)
[2023-11-27] MEDS: MIRALAX 17 GRAMS PO (09:16)
[2023-11-27] MEDS: PROTONIX 40 MG PO ×2 (09:18→20:14)
--- NOTE | 2023-11-27 09:41 | W.PN.HOSP.TC ---
Today's Communication/Plan
-
Discharge planning
Assessment / Plan
Assessment / Plan
Gen-AAOx3, NAD, very frail
HEENT-NC, AT, anicteric, clear oral mm
Neck-supple
CV-reg, no M, +S1/S2
Lungs-clear B/L
Abd-soft, NT, ND
Ext-no edema
Musculoskeletal-no cyanosis, clubbing
Skin-warm and dry
Neuro-grossly non-focal
Psych-calm, cooperative
LOLIS -due to volume depletion. Improved. High anion gap metabolic acidosis noted, resolved now.
Symptomatic acute blood loss anemia -transfused 1 unit PRBC 11/23. Hemoglobin improved to 9.3, stable. Etiology of blood loss anemia likely due to GI bleed in the setting of heme positive stool.
Acute GI bleed -likely due to use of NSAIDs, steroids. EGD demonstrated 10 mm duodenal ulcer in bulb with contact bleeding around the edge. Continue Protonix twice daily for 2 months as per GI. Avoid NSAIDs. Discussed with patient and .
Follow-up as outpatient with GI.
History of duodenal ulcer -due to use of NSAIDs.
Hypokalemia -improving.
Giant cell arteritis -on chronic prednisone. 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 Can hold off on rheumatology consult for now, recommend outpatient follow-up.
Osteoporosis - on weekly alendronate.
DNR
Dispo -medically stable for discharge to SNF. Case management aware. Updated on the phone.
Anticipated Discharge: Today
Subjective/Interval History
-
Date of Service: November 27, 2023
Patient seen and examined. No complaints.
Objective Data
-
Labs:
Laboratory Results
11/27/23
06:50
WBC 9.4
Hgb 9.3 L
Hct 27.4 L
Plt Count 389
Sodium 137
Potassium 3.4 L
Chloride 104
Carbon Dioxide 28
BUN 13
Creatinine 0.6
Glucose 101 H
Calcium 8.2 L
Vital Signs:
Vital Signs
Temp Pulse Resp BP Pulse Ox
98.0 F 94 18 163/81 96
11/27/23 07:00 11/27/23 07:00 11/27/23 07:00 11/27/23 07:00 11/27/23 07:00
I&O
11/26/23 11/27/23 11/28/23
06:59 06:59 06:59
Intake Total 3760 / 3760 960 / 960
Output Total 1100 / 1100
Balance 2660 / 2660 960 / 960
Review of Systems
-
History Source: Patient
All other systems: Reviewed and negative
[2023-11-27] MEDS: KCL 40 MEQ PO (11:02)
--- NOTE | 2023-11-27 12:41 | CM ---
CM reviewed chart and pt remains ready for dc
Only accepting SNF at this time is [facility] through [facility] benefits
Day 1-20 $0 copay, Day 21-100 $50 copay/day
Pt be will be required ot bring her own eye drops
Bedside meeting with pt and spouse
In agreement with [facility]
Pt requesting either BLS or WC van be arranged
At this time, pt appropriate for BLS
Does not require auth for her [facility] plan
Auth initiates with [facility]/Juliano [phone] option 3
Clinicals faxed to [phone]
Hopeful for determination tomorrow
Discharge Disposition- [facility] pending auth via BLS
[2023-11-27 16:30] VITALS: BP 116/65
[2023-11-27] MEDS: KCL 20 MEQ PO (20:14)
[2023-11-27] MEDS: RESTORIL 7.5 MG PO (20:16)
[2023-11-27] MEDS: ULTRAM 50 MG PO (20:16)
[2023-11-27 23:47] VITALS: BP 170/88
[2023-11-28] MEDS: TYLENOL 650 MG PO ×3 (00:21→14:17)
[2023-11-28 00:40] VITALS: BP 185/101
[2023-11-28 02:15] VITALS: BP 136/79
[2023-11-28 05:03] VITALS: BMI 21.3
[2023-11-28 07:00] VITALS: BP 169/83
[2023-11-28] MEDS: DELTASONE 3 MG PO (08:48)
[2023-11-28] MEDS: KCL 20 MEQ PO (08:48)
[2023-11-28] MEDS: FLOMAX 0.400000000000000022 MG PO (08:48)
[2023-11-28] MEDS: PROTONIX 40 MG PO (08:48)
[2023-11-28] MEDS: MIRALAX 17 GRAMS PO (08:49)
[2023-11-28] MEDS: HYDROPHOR 1 APPLIC TOPICAL (08:49)
[2023-11-28] MEDS: COSOPT EYE DROPS 1 DROP BOTH EYES (08:49)
[2023-11-28 09:49] LABS: Blood Urea Nitrogen 13 mg/dl (7-17); Calcium 8.5 mg/dl (8.4-10.2); Carbon Dioxide 25 mmol/L (22-30); Chloride 106 mmol/L (98-107); Estimated Creatinine Clearance 48 ml/min; Glucose 105 mg/dl (70-99); Potassium 4.5 mmol/L (3.5-5.1); Sodium 135 mmol/L (135-145); eGFR > 60.00
--- NOTE | 2023-11-28 09:52 | W.PN.HOSP.TC ---
Today's Communication/Plan
-
Await labs
Metoprolol
Discharge planning
Assessment / Plan
Assessment / Plan
Gen-AAOx3, NAD, very frail
HEENT-NC, AT, anicteric, clear oral mm
Neck-supple
CV-reg, no M, +S1/S2
Lungs-clear B/L
Abd-soft, NT, ND
Ext-no edema
Musculoskeletal-no cyanosis, clubbing, right lower extremity dressing intact
Skin-warm and dry
Neuro-grossly non-focal
Psych-calm, cooperative
LOLIS -due to volume depletion. Improved. High anion gap metabolic acidosis noted, resolved now.
Symptomatic acute blood loss anemia -transfused 1 unit PRBC 11/23. Hemoglobin improved to 9.3, stable. Etiology of blood loss anemia likely due to GI bleed in the setting of heme positive stool.
Acute GI bleed -likely due to use of NSAIDs, steroids. EGD demonstrated 10 mm duodenal ulcer in bulb with contact bleeding around the edge. Continue Protonix twice daily for 2 months as per GI. Avoid NSAIDs. Discussed with patient and .
Follow-up as outpatient with GI.
History of duodenal ulcer -due to use of NSAIDs.
Hypokalemia -improving. Labs pending for today.
Giant cell arteritis -on chronic prednisone. 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 Can hold off on rheumatology consult for now, recommend outpatient follow-up.
Hyperlipidemia -she is on Zocor at home.
Essential hypertension - blood pressures are labile. She is on metoprolol at home, will resume.
Osteoporosis - on weekly alendronate.
Chronic right lower extremity wound -continue local wound care. Outpatient follow-up with wound clinic.
DNR
Dispo -medically stable for discharge to SNF. Case management aware.
Anticipated Discharge: Today
Subjective/Interval History
-
Date of Service: November 28, 2023
Patient seen and examined. No complaints.
Objective Data
-
Labs:
Laboratory Results
11/28/23
07:35
Sodium 135
Potassium 4.5 D
Chloride 106
Carbon Dioxide 25
BUN 13
Creatinine 0.7
Glucose 105 H
Calcium 8.5
Vital Signs:
Vital Signs
Temp Pulse Resp BP Pulse Ox
98.9 F 94 18 169/83 97
11/28/23 07:00 11/28/23 07:00 11/28/23 07:00 11/28/23 07:00 11/28/23 07:00
I&O
11/27/23 11/28/23 11/29/23
06:59 06:59 06:59
Intake Total 960 / 960
Output Total 400 / 400
Balance 960 / 960 -400 / -400
Review of Systems
-
History Source: Patient
All other systems: Reviewed and negative
--- NOTE | 2023-11-28 11:36 | W.DS.TRANS ---
DC Summary - Travel Coordinator
-
Discharge Instructions:
Discharge Diagnosis/Procedures Acute kidney injury, duodenal ulcer, acute blood
loss anemia, hypokalemia
Diet Regular
Activity With assistance,As tolerated
Driving Restrictions No driving
Bathing Restrictions None
Blood Work CBC in 1 week
Instructions:
Stand-Alone Forms:
Changes to Home Medications: No
Discharge Medications:
DC Medications w/original date entered in [employer]
simvastatin 40 mg tablet 40 mg PO QPM High cholesterol 09/27/11
alendronate 70 mg tablet 70 mg PO WE@0800 osteoporosis 06/18/21
aspirin 81 mg tablet,delayed release 81 mg PO DAILY Blood clot prevention/tx 06/15/22
dorzolamide 22.3 mg-timolol 6.8 mg/mL eye drops 1 drp BOTH EYES BID Eye condition 06/15/22
metoprolol succinate 25 mg tablet,extended release 24 hr 12.5 mg PO DAILY Blood pressure 06/15/22
docusate sodium 100 mg capsule (Colace) 100 mg PO DAILY 11/24/23
loperamide 2 mg capsule 4 mg PO BIDPRN PRN diarrhea 11/24/23
netarsudil 0.02 % eye drops (Rhopressa) 1 drp BOTH EYES DAILY@2100 11/24/23
polyethylene glycol 3350 17 gram oral powder packet (Miralax) 17 g PO DAILY PRN constipation 11/24/23
therapeutic multivitamin 1 tab PO DAILY 11/24/23
pantoprazole 40 mg tablet,delayed release 40 mg PO BID #0 tabs 11/28/23
potassium chloride 20 mEq tablet,extended release(part/cryst) 20 meq PO DAILY #0 tabs 11/28/23
prednisone 1 mg tablet 3 mg PO DAILY #0 tabs 11/28/23
tamsulosin 0.4 mg capsule 0.4 mg PO DAILY #0 caps 11/28/23
temazepam 7.5 mg capsule 7.5 mg PO HSPRN PRN Insomnia #4 caps 11/28/23
tramadol 50 mg tablet 50 mg PO Q6HPRN PRN moderate pain #8 tabs 11/28/23
Home Medication Changes
Pending Results: No
[2023-11-28] MEDS: ULTRAM 50 MG PO (11:50)
--- NOTE | 2023-11-28 12:40 | CM ---
CM following re: d/c planning
Chart reviewed
Pt is medically stable for d/c; SNF authorization obtained
CM spoke with the patient, her spouse, & their daughter to inform them of the same
NOAM also sent a TT to [facility] in admissions at the facility to provide auth details and transport time
NOAM completed [facility] & inhouse house transport form and p/u time confirmed for 1:30pm
No additional d/c need to note
PLAN; d/c to [facility]
Report: [phone]

Pt was approved for 5days at the [facility]
SOC 11/27 with a NRD 12/02/23
Auth.#[id number]
[2023-11-28 12:42] VITALS: BP 128/72
[2023-11-28] MEDS: TOPROL XL 12.5 MG PO (13:33)
== END 2023-11-28 14:25 | DRG 682 ==
LOC: 4 EAST ACU 13:39
PROVIDERS: Nurse Practitioner Family; ADMITTING PHYSICIAN Internal Medicine; ATTENDING PHYSICIAN Hospitalist; CONSULT PHYSICIAN Specialist; EMERGENCY PHYSICIAN Emergency Medicine; FAMILY PHYSICIAN Internal Medicine
PROC: 30233N1 Transfusion of Nonautologous Red Blood Cells into Peripheral Vein, Percutaneous Approach (ICD-10-PCS; 2023-11-24)
PROC: 0DJ08ZZ Inspection of Upper Intestinal Tract, Via Natural or Artificial Opening Endoscopic (ICD-10-PCS; 2023-11-25)
DX: N17.9 Acute kidney failure, unspecified (principal); K26.4 Chronic or unspecified duodenal ulcer with hemorrhage; D62 Acute posthemorrhagic anemia; T39.395A Adverse effect of other nonsteroidal anti-inflammatory drugs [NSAID], initial encounter; E87.6 Hypokalemia; K22.2 Esophageal obstruction; M31.6 Other giant cell arteritis; Z66 Do not resuscitate; Z79.82 Long term (current) use of aspirin
CPT/HCPCS: 36430; 80048; 82728; 83540; 83735; 84443; 85014; 85018; 85025; 85027; 85610; 85652; 86850; 86900; 86901; 86920; 87070; 93005; 96361; 96374; 97116; 97163; 97167; 97530; 97535; 99285; P9016

== ENCOUNTER → 2023-12-05 11:48 | Outpatient (REF) | payer OTHER, MEDICARE, SELFPAY ==
[2023-12-05 12:43] LABS: % Basophils 0.5 % (0-2); % Eosinophils 1.6 % (0-6); % Immature Granulocytes 1.3 % (0-0.5); % Lymphocytes 19.2 % (20.5-51.1); % Monocytes 12.1 % (1.7-9.3); % Neutrophils 65.3 % (42.2-75.2); Absolute Eosinophils 0.1 10^3/uL (0-0.7); Absolute Immature Granulocytes 0.1 10^3/uL (0-0.05); Absolute Lymphocytes 1.5 10^3/uL (1.2-3.4); Absolute Monocytes 0.9 10^3/uL (0.1-0.6); Hematocrit 25.6 % (37.0-47.0); Hemoglobin 8.3 g/dL (12.0-16.0); Mean Corp Hgb Conc. 32.4 g/dL (33.0-37.0); Mean Corpuscular Hgb 31.8 pg (27.0-31.0); Mean Corpuscular Volume 98.1 fL (81.0-99.0); Mean Platelet Volume 10.1 fL (7.4-10.4); Nucleated Red Blood Cells % 0 %; Platelet Count 420 10^3/uL (130-400); Red Blood Cell Count 2.61 10^6/uL (4.20-5.40); White Blood Cell Count 7.7 10^3/uL (4.8-10.8)
== END ==
LOC: OLABP 11:48
PROVIDERS: ATTENDING PHYSICIAN Student in an Organized Health Care Education/Training Program
DX: N17.9 Acute kidney failure, unspecified (principal); D64.9 Anemia, unspecified; K92.2 Gastrointestinal hemorrhage, unspecified; E87.6 Hypokalemia; M62.59 Muscle wasting and atrophy, not elsewhere classified, multiple sites; M62.81 Muscle weakness (generalized)
CPT/HCPCS: 36415; 85025

== ENCOUNTER → 2023-12-12 12:01 | Outpatient (REF) | payer OTHER, MEDICARE, SELFPAY ==
[2023-12-12 12:43] LABS: % Basophils 0.7 % (0-2); % Immature Granulocytes 0.9 % (0-0.5); % Lymphocytes 22.7 % (20.5-51.1); % Monocytes 11.1 % (1.7-9.3); % Neutrophils 62.6 % (42.2-75.2); Absolute Basophils 0.1 10^3/uL (0-0.2); Absolute Eosinophils 0.2 10^3/uL (0-0.7); Absolute Immature Granulocytes 0.1 10^3/uL (0-0.05); Absolute Neutrophils 5.4 10^3/uL (1.4-6.5); Hematocrit 27.6 % (37.0-47.0); Hemoglobin 8.7 g/dL (12.0-16.0); Mean Corp Hgb Conc. 31.5 g/dL (33.0-37.0); Mean Corpuscular Hgb 31.5 pg (27.0-31.0); Nucleated Red Blood Cells % 0 %; Platelet Count 377 10^3/uL (130-400); Red Blood Cell Count 2.76 10^6/uL (4.20-5.40); Red Cell Dist. Width 15.5 % (11.5-14.5); White Blood Cell Count 8.7 10^3/uL (4.8-10.8)
== END ==
LOC: OLABP 12:01
PROVIDERS: ATTENDING PHYSICIAN Student in an Organized Health Care Education/Training Program
DX: N17.9 Acute kidney failure, unspecified (principal); D64.9 Anemia, unspecified; K27.9 Peptic ulcer, site unspecified, unspecified as acute or chronic, without hemorrhage or perforation; E87.6 Hypokalemia; M31.6 Other giant cell arteritis
CPT/HCPCS: 36415; 85025

== ENCOUNTER → 2023-12-13 10:48 | Outpatient (REF) | payer MEDICARE, SELFPAY ==
[2023-12-13 11:21] LABS: % Basophils 0.9 % (0-2); % Eosinophils 2.9 % (0-6); % Immature Granulocytes 0.9 % (0-0.5); % Lymphocytes 21.4 % (20.5-51.1); % Monocytes 11.5 % (1.7-9.3); % Neutrophils 62.4 % (42.2-75.2); Absolute Basophils 0.1 10^3/uL (0-0.2); Absolute Eosinophils 0.3 10^3/uL (0-0.7); Absolute Immature Granulocytes 0.1 10^3/uL (0-0.05); Absolute Lymphocytes 1.8 10^3/uL (1.2-3.4); Absolute Neutrophils 5.4 10^3/uL (1.4-6.5); Hematocrit 28.2 % (37.0-47.0); Hemoglobin 9.1 g/dL (12.0-16.0); Mean Corp Hgb Conc. 32.3 g/dL (33.0-37.0); Mean Corpuscular Hgb 31.6 pg (27.0-31.0); Mean Corpuscular Volume 97.9 fL (81.0-99.0); Mean Platelet Volume 10.1 fL (7.4-10.4); Nucleated Red Blood Cells % 0 %; Platelet Count 390 10^3/uL (130-400); Red Blood Cell Count 2.88 10^6/uL (4.20-5.40); Red Cell Dist. Width 15.3 % (11.5-14.5); White Blood Cell Count 8.6 10^3/uL (4.8-10.8)
== END ==
LOC: OLABP 10:48
PROVIDERS: ATTENDING PHYSICIAN Student in an Organized Health Care Education/Training Program
DX: N17.9 Acute kidney failure, unspecified (principal); D64.9 Anemia, unspecified; K27.9 Peptic ulcer, site unspecified, unspecified as acute or chronic, without hemorrhage or perforation; K92.2 Gastrointestinal hemorrhage, unspecified; E87.6 Hypokalemia; M31.6 Other giant cell arteritis; M62.59 Muscle wasting and atrophy, not elsewhere classified, multiple sites; M62.81 Muscle weakness (generalized)
CPT/HCPCS: 36415; 85025

== ENCOUNTER 2023-12-30 17:56 | Inpatient (IN) | payer MEDICARE, SELFPAY ==
[2023-12-30] VITALS (14 sets, daily range): BP systolic 72–145; BP diastolic 44–84; BMI 19.4
--- NOTE | 2023-12-30 10:52 | ED.GENMED ---
History of Present Illness
General
Chief Complaint: Weakness
Source: patient
Exam Limitations: none
Time Seen by Provider: 12/30/23 10:50
History of Present Illness
History of Present Illness:
See MDM
Past History
Past History
ED Past Medical History: HTN, Hypercholesterolemia, Other (Giant cell arteritis) and Other ( rheumatic fever, hyperthyroidism, macular degeneration, cataracts, ocular migraine.)
ED Past Surgical History: Orthopedic (Bilateral hip replacements) and Urological (Right Kidney wired in place)
Social History
Tobacco: Non-smoker
Alcohol: Daily (seagram's 7 2-3 oz)
Personal:
Living: with family
Family History
Family History: Other (Breast cancer. Father with a stroke)
Phy Exam
Physical Exam
Physical Exam:
See MDM
Course
Orders/Labs/Results
Orders:
Orders
12/30/23 10:51
Electrocardiogram (*1) Urgent
Reason for Study: Fatigue / Weakness
EKG- Treatment ONCE
CRP [C-Reactive Protein] Urgent
Complete Blood Count/With Diff Urgent
Comprehensive Metabolic Panel Urgent
ESR [Erythrocyte Sed Rate] Urgent
Urinalysis Reflex To Culture Urgent
MDM/Problems Addressed
Differential Diagnosis Includes:
HPI and MDM Narrative:
88-year-old female presenting with generalized weakness. Symptoms have progressed over the past 24 hours. She states she is having trouble seeing and has generalized weakness. She is concerned because this is similar presentation to prior
episodes when she was diagnosed with giant cell arteritis.
Given her generalized weakness, will obtain basic blood work, EKG and urinalysis. Patient appears to be a very poor historian and is asking that I get all the information from her . She states her is on his way
Physical exam
General: Weak and frail
HEENT: protecting airway. Mildly dry mucous membranes. No tenderness to bilateral temples
Neck: supple
CV: No evidence of cyanosis. Regular rate and rhythm
Resp: No accessory muscle use. Lungs
Abd: Non-distended
Extremities: No deformities
Neuro: alert. No focal deficits
Psych: Normal affect
Skin: Old appearing skin tears to right forearm and right
Problems Addressed including Acute and Chronic Conditions affecting care:
1. Generalized weakness
Acuity: acute
Prognosis: stable
Details: Given her history of giant cell arteritis, will obtain ESR and CRP. Will look for other sources of weakness such as metabolic encephalopathy or urinary tract infection or dehydration
2. [ ]
Acuity: acute
Prognosis: stable
Details:
3. [ ]
Acuity: acute
Prognosis: stable
Details:
4. [ ]
Acuity: acute
Prognosis: stable
Details:
5. [ ]
Acuity:
Prognosis:
Details:
Updates
Differential Diagnosis (but not limited to): Dehydration, giant cell arteritis, UTI
Testing considered: CT head but she has no focal deficits
Drug therapy (if applicable): OTC meds, please see d/c instruction regarding Rx drugs
Amount and/or Complexity of Data Reviewed
Clinical info obtained from: Patient
External data reviewed: N/A
Labs I independently reviewed (but not limited to): [ ]
Radiology: N/A
Pulse Ox: not hypoxic
EKG independently reviewed: N/A
Twister Tender: N/A
Critical Care: N/A
Risk of Complication:
Social Determinants of health: Good social support
Discussed with other providers: N/A
Escalation of Care includes Admit/Obs: After being observed in the Emergency Department, pt stable for discharge.
Occasional wrong word or 'sound a like' substitutions may have occurred due to the inherent limitations of voice recognition software. Read the chart carefully and recognize, using context, where substitutions have occurred.
ED Attending Note
-
Portions of this chart may have been created with voice recognition software.� Occasional wrong word or��sound alike� substitutions may have occurred due to the inherent limitations of voice recognition software.
Discharge Plan
Departure
Prescriptions:
No Action
simvastatin 40 MG tablet
40 mg PO QPM
alendronate 70 MG tablet
70 mg PO WE@0800
aspirin 81 mg Tablet,Delayed Release (Dr/Ec)
81 mg PO DAILY
dorzolamide-timolol 22.3-6.8 mg/mL drops
1 drp BOTH EYES BID
metoprolol succinate 25 MG tablet extended release 24 hr
12.5 mg PO DAILY
loperamide 2 mg Capsule
4 mg PO BIDPRN PRN (Reason: diarrhea)
polyethylene glycol 3350 [Miralax] 17 gram Powder In Packet
17 g PO DAILY PRN (Reason: constipation)
therapeutic multivitamin Tablet
1 tab PO DAILY
docusate sodium [Colace] 100 mg Capsule
100 mg PO DAILY
Rhopressa 0.02 % Drops
1 drp BOTH EYES DAILY@2100
prednisone 1 mg Tablet
3 mg PO DAILY Qty: 0 0RF
tramadol 50 mg Tablet
50 mg PO Q6HPRN PRN (Reason: moderate pain) Qty: 8 0RF
temazepam 7.5 mg Capsule
7.5 mg PO HSPRN PRN (Reason: Insomnia) Qty: 4 0RF
potassium chloride 20 mEq Tablet,Er Particles/Crystals
20 meq PO DAILY Qty: 0 0RF
tamsulosin 0.4 mg Capsule
0.4 mg PO DAILY Qty: 0 0RF
pantoprazole 40 mg Tablet,Delayed Release (Dr/Ec)
40 mg PO BID Qty: 0 0RF
Discharge Date and Time
Print Language: [place]
[2023-12-30 11:25] LABS: % Basophils 0.4 % (0-2); % Immature Granulocytes 0.7 % (0-0.5); % Lymphocytes 12.2 % (20.5-51.1); % Monocytes 8.5 % (1.7-9.3); % Neutrophils 77.2 % (42.2-75.2); Absolute Eosinophils 0.1 10^3/uL (0-0.7); Absolute Immature Granulocytes 0.1 10^3/uL (0-0.05); Absolute Lymphocytes 1.3 10^3/uL (1.2-3.4); Absolute Monocytes 0.9 10^3/uL (0.1-0.6); Absolute Neutrophils 8.2 10^3/uL (1.4-6.5); Hematocrit 34.4 % (37.0-47.0); Hemoglobin 11.5 g/dL (12.0-16.0); Mean Corp Hgb Conc. 33.4 g/dL (33.0-37.0); Mean Corpuscular Hgb 31.2 pg (27.0-31.0); Mean Corpuscular Volume 93.2 fL (81.0-99.0); Mean Platelet Volume 10.4 fL (7.4-10.4); Nucleated Red Blood Cells % 0 %; Platelet Count 265 10^3/uL (130-400); Red Blood Cell Count 3.69 10^6/uL (4.20-5.40); Red Cell Dist. Width 15.3 % (11.5-14.5); White Blood Cell Count 10.7 10^3/uL (4.8-10.8)
[2023-12-30 11:45] LABS: Erythrocyte Sed Rate 38 mm/hour (0-20)
--- NOTE | 2023-12-30 11:45 | ED.GENMED ---
History of Present Illness
General
Chief Complaint: Weakness
Source: patient
Exam Limitations: none
Time Seen by Provider: 12/30/23 10:50
Travel History
Have you had any contact with someone who has COVID-19?: No
Do you have any symptoms of coronavirus? Fever > 100 degrees, chills, cough, shortness of breath, sore throat, loss of taste or smell, muscle aches, or headache?: No
History of Present Illness
History of Present Illness:
See MDM
Past History
Past History
ED Past Medical History: HTN, Hypercholesterolemia, Other (Giant cell arteritis) and Other ( rheumatic fever, hyperthyroidism, macular degeneration, cataracts, ocular migraine.)
ED Past Surgical History: Orthopedic (Bilateral hip replacements) and Urological (Right Kidney wired in place)
Social History
Tobacco: Non-smoker
Alcohol: Daily (seagram's 7 2-3 oz)
Personal:
Living: with family
Family History
Family History: Other (Breast cancer. Father with a stroke)
Phy Exam
Physical Exam
Physical Exam:
See MDM
Course
Orders/Labs/Results
Orders:
Orders
12/30/23 10:51
Electrocardiogram (*1) Urgent
Reason for Study: Fatigue / Weakness
EKG- Treatment ONCE
Urinalysis Reflex To Culture Urgent
12/30/23 11:15
Basic Metabolic Panel Urgent
CRP [C-Reactive Protein] Urgent
Complete Blood Count/With Diff Urgent
ESR [Erythrocyte Sed Rate] Urgent
12/30/23 11:57
Add On- LAB Urgent
Tests Added?: LFTs
12/30/23 12:23
0.9% Sodium Chloride 1000 ml [Nss] 1,000 ml IV BOLUS
12/30/23 12:37
Calcium Gluc 1 g (4.65 mEq)/100mL over 30 min ONCE Calcium Gluconate 1 gram/100mL [Calcium Gluconate] 1 gram in 100 ml IV ONCE
Dextrose 50%-Water [Dextrose 50% Syringe] 25 grams IV NOW STA
Insulin Human Regular [Novolin R] 10 units IV NOW STA
Sodium Zirconium Cyclosilicate [Lokelma] 10 gram PO NOW STA
Abnormal Lab Results
12/30/23
11:15
RBC 3.69 L 10^6/uL
(4.20-5.40)
Hgb 11.5 L g/dL
(12.0-16.0)
Hct 34.4 L %
(37.0-47.0)
MCH 31.2 H pg
(27.0-31.0)
RDW 15.3 H %
(11.5-14.5)
Abs Immat Gran (auto) 0.1 H 10^3/uL
(0-0.05)
Absolute Neuts (auto) 8.2 H 10^3/uL
(1.4-6.5)
Absolute Monos (auto) 0.9 H 10^3/uL
(0.1-0.6)
Immature Gran % 0.7 H %
(0-0.5)
Neutrophils % 77.2 H %
(42.2-75.2)
Lymphocytes % 12.2 L %
(20.5-51.1)
ESR 38 H mm/hour
(0-20)
Sodium 133 L mmol/L
(135-145)
Potassium 6.0 H mmol/L
(3.5-5.1)
Carbon Dioxide 15 L mmol/L
(22-30)
BUN 28 H mg/dl
(7-17)
12/30/23 11:15
12/30/23 11:15
Vital Signs
Initial and Last Documented VS:
Initial Vital Signs
Temp Pulse Resp BP Pulse Ox
97.9 F 83 10 131/70 99
12/30/23 10:53 12/30/23 10:53 12/30/23 10:53 12/30/23 10:53 12/30/23 10:53
Last Documented Vital Signs
Temp Pulse Resp BP Pulse Ox
97.9 F 84 17 118/69 99
12/30/23 10:53 12/30/23 11:15 12/30/23 11:15 12/30/23 11:00 12/30/23 11:15
MDM/Problems Addressed
Differential Diagnosis Includes:
HPI and MDM Narrative:
88-year-old female present with generalized weakness and fatigue. She is a poor historian and asking that I speak to her . Patient states she has a history of giant cell arteritis and believes this is similar symptoms.
On exam, she is weak and frail. She has mildly dry mucous membranes no focal deficits.
Physical exam
General: Weak and frail but nontoxic-appearing
HEENT: protecting airway. Pupils equal reactive. No temporal tenderness
Neck: supple
CV: No evidence of cyanosis. Regular rate and rhythm
Resp: No accessory muscle use
Abd: Non-distended
Extremities: No deformities
Neuro: alert. No focal deficits
Psych: Normal affect
Skin: Old appearing skin tears to right arm and right lower
Problems Addressed including Acute and Chronic Conditions affecting care:
1. Generalized weakness
Acuity: acute
Prognosis: stable
Details: Given her history of giant cell arteritis, will obtain basic blood work including CRP and ESR. Will look for other metabolic derangements and possible UTI
2. Hyperkalemia
Acuity: acute
Prognosis: unstable
Details: states she was recently started on potassium supplements 4 days ago. Given the concern for acute peaked T waves on EKG, will give calcium, insulin, dextrose and Lokelma.
3. [ ]
Acuity: acute
Prognosis: stable
Details:
4. [ ]
Acuity: acute
Prognosis: stable
Details:
5. [ ]
Acuity:
Prognosis:
Details:
Updates
12:20 PM at bedside. He indicates that [facility]. She was discharged a few weeks ago. She got COVID that day. Since getting COVID, she has deconditioned.
Differential Diagnosis (but not limited to): UTI, giant cell arteritis, dehydration
Testing considered: CT head but she denies headache. She has no focal deficits
Drug therapy (if applicable): OTC meds, please see d/c instruction regarding Rx drugs
Amount and/or Complexity of Data Reviewed
Clinical info obtained from: Patient
External data reviewed: N/A
Labs I independently reviewed (but not limited to): potassium of 6
Radiology: N/A
Pulse Ox: not hypoxic
EKG independently reviewed: Sinus rhythm, normal axis, no STEMI, peaked T waves
Ship Manager: Sinus rhythm
Critical Care: The high probability of a clinically significant, sudden or life threatening deterioration of the cardiovascular system(s) required my full and direct attention, intervention and personal management. The aggregate critical care time
was 33 minutes. This time is in addition to time spent performing reported procedures but includes the following:
[x] Data Review and interpretation
[x] Patient assessment and monitoring of vital signs
[x] Documentation
[x] Medication orders and management
Risk of Complication:
Social Determinants of health: Good social support
Discussed with other providers: N/A
Escalation of Care includes Admit/Obs: After being observed in the Emergency Department, pt stable for discharge.
Occasional wrong word or 'sound a like' substitutions may have occurred due to the inherent limitations of voice recognition software. Read the chart carefully and recognize, using context, where substitutions have occurred.
*Critical Care Note
Total Time (30-74mins, 75-104mins- exclusive of procedures): 33 min
ED Attending Note
-
Portions of this chart may have been created with voice recognition software.� Occasional wrong word or��sound alike� substitutions may have occurred due to the inherent limitations of voice recognition software.
Discharge Plan
Departure
Patient Disposition: Admit
Date of Disposition: 12/30/23
Time of Disposition: 12:40
Admit to: Telemetry
Presentation/result/management discussed w/ accepting MD/DO: Hospitalist
Discharge Problem:
Acute hyperkalemia
Prescriptions:
No Action
simvastatin 40 MG tablet
40 mg PO QPM
alendronate 70 MG tablet
70 mg PO WE@0800
aspirin 81 mg Tablet,Delayed Release (Dr/Ec)
81 mg PO DAILY
dorzolamide-timolol 22.3-6.8 mg/mL drops
1 drp BOTH EYES BID
metoprolol succinate 25 MG tablet extended release 24 hr
12.5 mg PO DAILY
therapeutic multivitamin Tablet
1 tab PO DAILY
Rhopressa 0.02 % Drops
1 drp BOTH EYES HS
prednisone 1 mg Tablet
3 mg PO DAILY Qty: 0 0RF
tramadol 50 mg Tablet
50 mg PO Q6HPRN PRN (Reason: moderate pain) Qty: 8 0RF
potassium chloride 20 mEq Tablet,Er Particles/Crystals
20 meq PO DAILY Qty: 0 0RF
acetaminophen [Tylenol Extra Strength] 500 mg Tablet
1,000 mg PO Q6H
ascorbic acid (vitamin C) [Vitamin C] 500 mg Tablet
500 mg PO DAILY
doxycycline hyclate 100 mg Tablet
100 mg PO BID
Patient Comments:
take for 10 days 12/18/23
melatonin 1 mg Tablet
1 mg PO HS
pantoprazole 40 mg tablet,delayed release (DR/EC)
40 mg PO DAILY
Referrals:
Curtis Mary MD [Family Provider] -
Interventions
Interventions:
*Risk Screen - Suicide Last Done: 12/30/23 10:53
*General Assessment Last Done: 12/30/23 10:53
*Neglect/Abuse Screening Last Done: 12/30/23 10:53
ED- Fall Risk Assessment Last Done: 12/30/23 11:04
*ED COVID-19 Vaccine History Last Done: 12/30/23 10:53
ED- Cardiac Assessment Last Done: 12/30/23 11:04
ED- Neurological Assessment Last Done: 12/30/23 11:04
ED- Pulmonary Assessment Last Done: 12/30/23 11:04
Discharge Date and Time
Print Language: TRINIDADIAN
[2023-12-30 12:04] LABS: Blood Urea Nitrogen 28 mg/dl (7-17); Calcium 9.3 mg/dl (8.4-10.2); Carbon Dioxide 15 mmol/L (22-30); Chloride 106 mmol/L (98-107); Estimated Creatinine Clearance 33 ml/min; Glucose 91 mg/dl (70-99); Sodium 133 mmol/L (135-145); eGFR 54.19
[2023-12-30] MEDS: NOVOLIN R 10 UNITS IV (13:13)
[2023-12-30] MEDS: LOKELMA 10 GRAM PO (13:18)
[2023-12-30] MEDS: CALCIUM GLUCONATE 100 IV (13:19)
[2023-12-30] MEDS: DEXTROSE 50% SYRINGE 25 GRAMS IV (13:20)
[2023-12-30] MEDS: NSS 1000 IV ×2 (13:22→17:58)
--- NOTE | 2023-12-30 16:29 | HPS.HSE ---
Family Physician
<TONY Pepe - Last Filed: 12/30/23 17:36>
-
Family Physician: Curtis Mary
Chief Complaint
<TONY Pepe - Last Filed: 12/30/23 17:36>
-
dizziness, wekaness legs, increased darker vision
History of Present Illness
88-year-old female from home with her Jayce at bedside who states all of a sudden today she had difficulty getting out of bed to the downstairs. She typically has chronic ambulatory dysfunction and uses a walker. She has history of giant
cell arteritis and has chronic visual impairment although over the past few days her vision she states is getting slightly darker. She denies headache. On exam she has central vision only both eyes. Her states she needs bright light at
all times to read small print. In the ER she is noted to be hypotensive 87/47 with dizziness. She denies decreased oral intake, fever, chills, chest pain, palpitations, shortness breath, cough, abdominal pain, nausea, vomiting, diarrhea, urinary
symptoms.
The patient had recent admission for duodenal ulcer with GI bleed secondary to NSAID and steroid use 11/28/2023. He was transfused 1 unit PRBC. She he underwent EGD showing duodenal ulcer with widely patent Schatzki's ring. She was placed on daily
Protonix 40 mg daily. sHe was also treated for hypokalemia K3.1 and placed on potassium supplements 20 mEq with K 4.5 on discharge
She has PMH HTN, HLD, giant cell arteritis, duodenal ulcer due to NSAIDs, GI bleed secondary to NSAID/steroids 11/28/2023 rheumatic fever, macular degeneration, cataracts, ocular migraines, osteoporosis, chronic right lower extremity wound
Medical History
<TONY Pepe - Last Filed: 12/30/23 17:36>
Past Medical History
Past Medical History: Reports Other
Additional Past Medical History:
HTN
HLD
giant cell arteritis with central vision only bilaterally
duodenal ulcer due to NSAIDs
GI bleed secondary to NSAID/steroids 11/28/2023
rheumatic fever
macular degeneration
cataracts
ocular migraines
osteoporosis
chronic right lower extremity wound
Past Surgical History: Reports Other
Additional Past Surgical History:
Nephro plexi 1957
Uterine polyp removed 1995
Right hip replacement December 2007, left hip replacement 2011
Tonsillectomy
Cataract extraction
Social History
Tobacco: Non-smoker
Alcohol: Daily (1.5 ounce whiskey nightly)
Drug: None
Personal:
Living: With Family ( Jayce)
Employment: Retired
Family History
Family History: Not pertinent
Allergies / Home Medications
Allergies reflects when Allergies were last updated in [facility].
Home Medications with original date entered in [facility]
Allergy/Medication List:
Allergies
Allergy/AdvReac Type Severity Reaction Status Date / Time
Penicillins Allergy Hives Verified 12/30/23 11:04
Sulfa (Sulfonamide Allergy VISUAL Verified 12/30/23 11:04
Antibiotics) DISTURBANCES
Home Medications
simvastatin 40 mg tablet 40 mg PO QPM High cholesterol 09/27/11
alendronate 70 mg tablet 70 mg PO WE@0800 osteoporosis 06/18/21
aspirin 81 mg tablet,delayed release 81 mg PO DAILY Blood clot prevention/tx 06/15/22
dorzolamide 22.3 mg-timolol 6.8 mg/mL eye drops 1 drp BOTH EYES BID Eye condition 06/15/22
metoprolol succinate 25 mg tablet,extended release 24 hr 12.5 mg PO DAILY Blood pressure 06/15/22
netarsudil 0.02 % eye drops (Rhopressa) 1 drp BOTH EYES HS Eye Condition 11/24/23
therapeutic multivitamin 1 tab PO DAILY Supplement 11/24/23
tramadol 50 mg tablet 50 mg PO Q6HPRN PRN moderate pain #8 tabs 11/28/23
acetaminophen 500 mg tablet (Tylenol Extra Strength) 1,000 mg PO Q6H pain 12/30/23
ascorbic acid (vitamin C) 500 mg tablet (Vitamin C) 500 mg PO DAILY supplement 12/30/23
doxycycline hyclate 100 mg tablet 100 mg PO BID Infection 12/30/23
melatonin 1 mg tablet 1 mg PO HS sleep 12/30/23
pantoprazole 40 mg tablet,delayed release 40 mg PO DAILY Gastrointestinal Issue 12/30/23
potassium chloride 20 mEq tablet,extended release(part/cryst) 20 meq PO DAILY Electrolyte Repletion 12/30/23
prednisone 1 mg tablet 3 mg PO DAILY Anti-Inflammatory 12/30/23
Review of Systems
<TONY Pepe - Last Filed: 12/30/23 17:36>
-
History Source: Patient and Family ( check)
A 12 point ROS was completed and negative except as noted: Yes
Constitutional: Denies Fever, Weight Loss or Fatigue
EENT: Reports Other (Reported increased darker vision bilateral eyes times few days); Denies Tearing or Runny Nose
Respiratory: Denies Cough or Trouble Breathing
Cardiac: Denies Chest Pain, Diaphoresis, Palpitations or Syncope
Abdomen/GI: Denies Abdominal Pain, Nausea, Vomiting, Diarrhea, Constipated, Bloody Stools or Black Stools
: Denies Dysuria, Frequency, Flank Pain, Incontinence, Difficulty Voiding or Urgency
Musculoskeletal: Denies Joint Pain or Edema
Skin: Denies Itching or Rash
Neurological: Reports Weakness (Generalized); Denies Dizzy or Headache
Endocrine: Reports No Symptoms
Hematologic/Lymphatic: Reports No Symptoms
Psych: Reports Calm
Physical Exam
<TONY Pepe - Last Filed: 12/30/23 17:36>
Vital Signs
Vital Signs
Temp Pulse Resp BP Pulse Ox
97.9 F 73 16 87/47 97
12/30/23 10:53 12/30/23 16:15 12/30/23 16:15 12/30/23 16:07 12/30/23 16:15
Physical Exam
General: Comfortable and Conversant; No Pain, Fever or Chills
HEENT: NormoCephalic, Anicteric, Moist mucous membranes, PERRLA, [place] Conjunctivae and Other (Chronic central vision only bilateral eyes)
Respiratory: Clear; No Wheezes, Rales or Rhonchi
Cardiac: S1/S2, Regular Rhythm and Murmur (Systolic 3/6); No Rub or Peripheral Edema
Breast: Deferred by me
GI: Soft, Non Tender, Non Distended, Normal Bowel Sounds and No Hepatosplenomegaly
Rectal: Deferred by Provider
Genito-urinary: Deferred by me
Musculoskeletal: No Clubbing, No Cyanosis and No Edema
Skin: Warm, Dry and Other (Right lower extremity cellulitis healing with scabbed area to); No Rash
Neuro: AO x 3 (Some mild memory impairment with recall), Nonfocal/grossly intact, Cranial Nerves Intact and No Sensory Deficits; No Slurred Speech or Facial Droop
Psych: Calm
Laboratory Results
<TONY Pepe - Last Filed: 12/30/23 17:36>
-
12/30/23 11:15
12/30/23 11:15
Laboratory Results
Total Bilirubin Cancelled 12/30/23 11:15
AST Cancelled 12/30/23 11:15
ALT Cancelled 12/30/23 11:15
Alkaline Phosphatase Cancelled 12/30/23 11:15
Impression/Plan
<TONY Pepe - Last Filed: 12/30/23 17:36>
-
Impression/plan:
Admit to IMU
#Hypotension unclear etiology question volume depletion versus infection
HTN�benign
131/76> 87/47
-monitor bp
-Status post 1 L NSS ,cont NSS 60 cc/hr
-Hold metoprolol succinate 12.5 mg daily
- will give 100 mg hydrocortisone 100mg now then 50 mg q8h
- blood cultures x2 , u/a , cxr
#Acute hyperkalemia on replacement therapy
#Recent Dx of hypokalemia
-Hold potassium chloride 20 mEq daily
-Given IV calcium gluconate, insulin, Lokelma in ER
-Repeat BMP
#Giant cell arteritis with chronic ambulatory dysfunction uses walker
#Chronic central vision only both eyes
-Follows with rheumatology Dr. Lelo White and ophthalmology Dr. Joey Velasquez
-on chronic prednisone 3 mg daily
-Reports increased dark vision over the past few days
-PT/OT/case management consult
#Recent duodenal ulcer due to NSAIDs, GI bleed secondary to NSAID/steroids 11/28/2023
#Status post 1 unit PRBC previous admission
-EGD showed duodenal ulcer with widely patent Schatzki's ring
-Continue Protonix 40 mg daily
#Covid recent dx 12/17
stayed at home did not require treatment
#HLD
-Continue Zocor 40 mg every afternoon
#Osteoporosis
-Patient takes alendronate 70 mg Wednesdays
#Chronic right lower extremity wound
Continue doxycycline 100 mg p.o. twice daily
#Insomnia
-Continue melatonin 1 mg at bedtime
Other PMH:
rheumatic fever
macular degeneration
cataracts
ocular migraines
DVT prophylaxis
SCDs
DNR
<Mingo Couch MD - Last Filed: 12/30/23 17:52>
-
I saw and examined the patient.
The [employer] or PA's note was reviewed and I agree with the note.
Per patient was diagnosed with giant cell arteritis almost a year ago she was treated with prednisone and currently she is on 3 mg of prednisone now. She is followed by Dr. Cook for giant cell arteritis as well as glaucoma. She was told
that her eye will not improve. Normally patient has decreased vision in the left eye compared to the right eye. He is also followed by Dr. Echeverria from rheumatology. Patient was admitted here with generalized weakness a month ago was found to
have anemia and was found to have a peptic ulcer. She was discharged to [facility] she got home about 2 weeks ago. stated that for the past couple of days she has been generally very weak and also she needs more light in the room to see as
her vision is darker. Patient is able to count fingers on the left side and able to read with the letters on the right. No eye pain. No headache no fever reported. Denies any specific weakness any part of the body except for generalized
weakness. She denies any chest pain. She had mild shortness of breath earlier today. She also had some abdominal discomfort which is gone. Denies any diarrhea or constipation. Had a bowel movement yesterday. No fever again. She was recently
started on doxycycline for right leg ulcer with some discharge which she follows with Dr. Marin at wound care center. She normally uses a stair lift but states that she needs more help with that in the past couple of days. She has bad
arthritis of the left leg And difficulty moving that leg which is not new. Patient was discharged to [facility] with p.o. potassium however she was not discharged from [facility] with that. 5 days ago [facility] called in prescription for potassium
which he started taking. Metoprolol is part of the medications list in the ER however the med list handed to me by the does not have metoprolol listed. Temazepam was also discontinued as per that list.
Comment:
Patient is awake alert oriented
Cardiovascular system S1-S2
Chest clear to auscultation
Abdomen soft and nontender bowel sounds appreciated
Lower extremities no edema
Neuroexam is nonfocal except for generalized weakness.
Also on the right anterolateral aspect of the right leg with mild discharge
# Hypotension-unclear reason.
Admit to stepdown
Start IV fluids
Stress dose steroids
Infectious disease workup including urinalysis, chest x-ray, blood cultures
She is nontoxic-appearing clinically check lactic acid
Repeat BMP
If develops a fever broaden antibiotics
Use pressors if needed
#Weakness- With GCA
Also get an MRI brain with balance issues reported.
# Hyperkalemia-hemolyzed specimen
Repeat potassium pending
ER did treat the patient with IV calcium gluconate, insulin and Lokelma.
Repeat BMP again pending
# Metabolic acidosis-repeat
Check lactic acid
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
She follows with Dr. Cook as well as Dr. Echeverria from rheumatology.
Will treat the patient with IV hydrocortisone for stress dose because of her hypotension and I will get in touch with rheumatology tomorrow.
Slightly elevated CRP noted
# Right leg ulcer-anterolateral follows with wound care center in 2 weeks for
Continue doxycycline which was prescribed by outpatient doctor wound care daily
#Recent duodenal ulcer due to NSAIDs
Got a unit of packed red blood cells last admission
EGD showed a duodenal ulcer
Continue PPI
#Recent COVID-19 infection
# Hyperlipidemia-continue Zocor or equivalent
# Osteoporosis-on alendronate as outpatient
# Insomnia-continue melatonin
# Glaucoma-continue dorzolamide, Rhopressa eyedrops
# Psoriasis
# DVT prophylaxis-Lovenox
# CODE STATUS addressed with patient and -they confirmed DNR
Complicated decision making
Discussed with patient's at bedside
Impression/plan:
Admit to IMU
#Hypotension unclear etiology question volume depletion versus infection
HTN�benign
131/76> 87/47
-monitor bp
-Status post 1 L NSS ,cont NSS 60 cc/hr
-Hold metoprolol succinate 12.5 mg daily
- will give 100 mg hydrocortisone 100mg now then 50 mg q8h
- blood cultures x2 , u/a , cxr
#Acute hyperkalemia on replacement therapy
#Recent Dx of hypokalemia
-Hold potassium chloride 20 mEq daily
-Given IV calcium gluconate, insulin, Lokelma in ER
-Repeat BMP
#Giant cell arteritis with chronic ambulatory dysfunction uses walker
#Chronic central vision only both eyes
-Follows with rheumatology Dr. Lelo White and ophthalmology Dr. Joey Velasquez
-on chronic prednisone 3 mg daily
-Reports increased dark vision over the past few days
-PT/OT/case management consult
#Recent duodenal ulcer due to NSAIDs, GI bleed secondary to NSAID/steroids 11/28/2023
#Status post 1 unit PRBC previous admission
-EGD showed duodenal ulcer with widely patent Schatzki's ring
-Continue Protonix 40 mg daily
#Covid recent dx 12/17
stayed at home did not require treatment
#HLD
-Continue Zocor 40 mg every afternoon
#Osteoporosis
-Patient takes alendronate 70 mg Wednesdays
#Chronic right lower extremity wound
Continue doxycycline 100 mg p.o. twice daily
#Insomnia
-Continue melatonin 1 mg at bedtime
Other PMH:
rheumatic fever
macular degeneration
cataracts
ocular migraines
DVT prophylaxis
SCDs
DNR
[2023-12-30] MEDS: SOLU-CORTEF 100 MG IV (17:58)
[2023-12-30 20:12] LABS: Lactic Acid 0.9 mmol/L (0.7-2.0)
[2023-12-30 20:13] LABS: Blood Urea Nitrogen 23 mg/dl (7-17); Calcium 9.1 mg/dl (8.4-10.2); Carbon Dioxide 15 mmol/L (22-30); Chloride 107 mmol/L (98-107); Estimated Creatinine Clearance 36 ml/min; Glucose 123 mg/dl (70-99); Potassium 4.5 mmol/L (3.5-5.1); Sodium 134 mmol/L (135-145); eGFR > 60.00
[2023-12-30] MEDS: TYLENOL 1000 MG PO (20:42)
[2023-12-30] MEDS: LIPITOR 20 MG PO (20:43)
[2023-12-30] MEDS: COSOPT EYE DROPS 1 DROP BOTH EYES (20:47)
[2023-12-30 21:04] LABS: Urine Albumin Negative (Neg - Trace); Urine Bilirubin Negative (Negative); Urine Character Clear (Clear); Urine Color Yellow; Urine Glucose Negative (Negative); Urine Ketone 2+ (Negative); Urine Leukocyte Trace (Negative); Urine Nitrite Negative (Negative); Urine Occult Blood Negative (Negative); Urine Specific Gravity 1.015 (<1.030); Urine Urobilinogen Negative (Neg - 1+)
[2023-12-30 21:14] LABS: Urine Red Blood Cell 0-2 /HPF (0-2)
[2023-12-30 21:15] LABS: Urine Bacteria Few (Negative)
--- NOTE | 2023-12-30 22:33 | TRANSFER ---
Pt received in IMU at the change of shift at 1850. She had a partial CHG wipe bath completed and she was accompanied by her . She arrived alert and oriented but hard of hearing and also has trouble with her vision especially her R eye.
Her helped with some of the admission questions. She had some wounds on her R leg and R arm and her does them at home. Dressings removed and redressed, see worklist wound intervention. Blood work obtained once she arrive here in
IMU and then urine sent and second blood culture obtained. She has chronic pain in her back and her R shoulder and R leg from arthritis. She wanted her tylenol for pain and it was given. She seems a bit anxious at times and does rely on her
for her care. She was able to use the bed amezquita for urine and wears attends as she does have some stress incontinence. Monitor shows NSR, BP on arrival was 145/84 RR was 18 and her pulse Ox was 100% on room air. Will continue to monitor pt.
[2023-12-31] VITALS (22 sets, daily range): BP systolic 96–169; BP diastolic 48–130; BMI 19.7
[2023-12-31] MEDS: SOLU-CORTEF 50 MG IV ×4 (00:38→23:24)
[2023-12-31] MEDS: TYLENOL PO ×2 (03:52→17:25)
[2023-12-31] MEDS: NSS 1000 IV (05:00)
[2023-12-31 05:14] LABS: % Immature Granulocytes 0.7 % (0-0.5); % Lymphocytes 9.6 % (20.5-51.1); % Monocytes 1.5 % (1.7-9.3); % Neutrophils 88.2 % (42.2-75.2); Absolute Lymphocytes 0.6 10^3/uL (1.2-3.4); Absolute Monocytes 0.1 10^3/uL (0.1-0.6); Absolute Neutrophils 5.2 10^3/uL (1.4-6.5); Hemoglobin 9.1 g/dL (12.0-16.0); Mean Corp Hgb Conc. 33.7 g/dL (33.0-37.0); Mean Corpuscular Hgb 31.2 pg (27.0-31.0); Mean Corpuscular Volume 92.5 fL (81.0-99.0); Mean Platelet Volume 10.2 fL (7.4-10.4); Nucleated Red Blood Cells % 0 %; Platelet Count 245 10^3/uL (130-400); Red Blood Cell Count 2.92 10^6/uL (4.20-5.40); Red Cell Dist. Width 15.3 % (11.5-14.5); White Blood Cell Count 5.9 10^3/uL (4.8-10.8)
[2023-12-31 05:35] LABS: Blood Urea Nitrogen 20 mg/dl (7-17); Calcium 8.3 mg/dl (8.4-10.2); Carbon Dioxide 15 mmol/L (22-30); Chloride 113 mmol/L (98-107); Estimated Creatinine Clearance 41 ml/min; Glucose 113 mg/dl (70-99); Potassium 4.4 mmol/L (3.5-5.1); Sodium 137 mmol/L (135-145); eGFR > 60.00
[2023-12-31] MEDS: ASPIR LOW (ENTERIC COATED) 81 MG PO (09:00)
[2023-12-31] MEDS: COSOPT EYE DROPS 1 DROP BOTH EYES ×2 (09:01→20:51)
[2023-12-31] MEDS: PROTONIX 40 MG PO (09:02)
[2023-12-31] MEDS: THERAGRAN 1 TABLET PO (09:02)
[2023-12-31] MEDS: VITAMIN C 500 MG PO (09:02)
[2023-12-31] MEDS: TYLENOL 1000 MG PO ×2 (09:02→20:51)
--- NOTE | 2023-12-31 09:17 | VNURNOTE ---
Patient is current with [facility] since 12/18 w/ SN/PT/OT will monitor progress and plan at discharge.
--- NOTE | 2023-12-31 09:43 | W.PN.HOSP.TC ---
Addendum entered and electronically signed by Mingo Couch MD 12/31/23 13:38:
Discussed with rheumatology. Reviewed patient's symptoms. Discussed about stress dose steroids. Agrees with infectious disease workup. Recommended to discharge patient on prednisone 40 mg after 1 to 2 days of stress dose and have her
see ophthalmology as outpatient and also Dr. Cabrales and will see the patient within 7 to 10 days.
Original Note:
Today's Communication/Plan
-
stop IVF
Rpt BMP later
stress dose steroids
Doxy
MRI
CXR
Assessment / Plan
Assessment / Plan
Per patient was diagnosed with giant cell arteritis almost a year ago she was treated with prednisone and currently she is on 3 mg of prednisone now. She is followed by Dr. Cook for giant cell arteritis as well as glaucoma. She was told
that her eye will not improve. Normally patient has decreased vision in the left eye compared to the right eye. He is also followed by Dr. Echeverria from rheumatology. Patient was admitted here with generalized weakness a month ago was found to
have anemia and was found to have a peptic ulcer. She was discharged to [facility] she got home about 2 weeks ago. stated that for the past couple of days she has been generally very weak and also she needs more light in the room to see as
her vision is darker. Patient is able to count fingers on the left side and able to read with the letters on the right. No eye pain. No headache no fever reported. Denies any specific weakness any part of the body except for generalized
weakness. She denies any chest pain. She had mild shortness of breath earlier today. She also had some abdominal discomfort which is gone. Denies any diarrhea or constipation. Had a bowel movement yesterday. No fever again. She was recently
started on doxycycline for right leg ulcer with some discharge which she follows with Dr. Marin at [facility]. She normally uses a stair lift but states that she needs more help with that in the past couple of days. She has bad
arthritis of the left leg And difficulty moving that leg which is not new. Patient was discharged to [facility] with p.o. potassium however she was not discharged from [facility] with that. 5 days ago [facility] called in prescription for potassium
which he started taking. Metoprolol is part of the medications list in the ER however the med list handed to me by the does not have metoprolol listed. Temazepam was also discontinued as per that list.
Patient is awake alert oriented
Cardiovascular system S1-S2
Chest clear to auscultation
Abdomen soft and nontender bowel sounds appreciated
Lower extremities no edema
Neuro exam is nonfocal except for generalized weakness.
Also on the right anterolateral aspect of the right leg with mild discharge
Vision same as yesterday-No change
# Hypotension-unclear reason.
Better with IVF
Possibly related to insufficiency causing this
Stress dose steroids
Infectious disease workup including urinalysis not consistent with, chest x-ray pending, blood cultures pending
She is nontoxic-appearing clinically
Lactic acid is normal
Continue outpatient doxycycline
#Weakness- With GCA
Also get an MRI brain with balance issues reported.
# Hyperkalemia-hemolyzed specimen
Repeat potassium normal
# Metabolic acidosis-nongap
Stop normal saline
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
She follows with Dr. Cook as well as Dr. Echeverria from rheumatology.
Will treat the patient with IV hydrocortisone for stress dose because of her hypotension
Slightly elevated CRP noted
I have left a message for rheumatology office-no one is listed as on-call on [place] text scheduled. Left a message for call back on doctors line.
Also called Dr. Cook's office and left a message for call back on 's line.
# Right leg ulcer-anterolateral follows with wound care center in 2 weeks for
Continue doxycycline which was prescribed by outpatient doctor wound care daily
#Recent duodenal ulcer due to NSAIDs
Got a unit of packed red blood cells last admission
EGD showed a duodenal ulcer
Continue PPI
#Recent COVID-19 infection
# Hyperlipidemia-continue Zocor or equivalent
# Osteoporosis-on alendronate as outpatient
# Insomnia-continue melatonin
# Glaucoma-continue dorzolamide, Rhopressa eyedrops
# Psoriasis
# DVT prophylaxis-Lovenox
# CODE STATUS addressed with patient and -they confirmed DNR
Discussed with nursing
Unfortunately orders for doxycycline, MRI, did not carryover. Reordered.
Chest x-ray which were ordered for yesterday, scheduled for today?
Anticipated Discharge: 24 - 48 hours
Subjective/Interval History
-
Date of Service: December 31, 2023
Objective Data
-
Labs:
Laboratory Results
12/31/23
04:56
WBC 5.9
Hgb 9.1 L D
Hct 27.0 L
Plt Count 245
Sodium 137
Potassium 4.4
Chloride 113 H
Carbon Dioxide 15 L
BUN 20 H
Creatinine 0.8
Glucose 113 H
Calcium 8.3 L
Vital Signs:
Vital Signs
Temp Pulse Resp BP Pulse Ox
98 F 97 19 119/93 100
12/31/23 07:40 12/31/23 06:30 12/31/23 06:30 12/31/23 06:00 12/31/23 06:30
I&O
12/30/23 12/31/23 01/01/24
06:59 06:59 06:59
Intake Total 1000 / 1000
Output Total 250 / 250
Balance 750 / 750
[2023-12-31 11:03] LABS: Iron 34 ug/dl (37-170)
[2023-12-31 11:12] LABS: Percent Saturation 21 % (20-50); Total Iron Binding Capacity 155 ug/dl (265-497)
--- NOTE | 2023-12-31 12:00 | WOUNDNOTE ---
R HEEL 2ND VIEW
--- NOTE | 2023-12-31 12:03 | WOUNDNOTE ---
R LOWER LEG MRS. HERNANDEZ, [birth year]
[2023-12-31] MEDS: VIBRAMYCIN 100 MG PO ×2 (12:04→20:51)
--- NOTE | 2023-12-31 12:04 | WOUNDNOTE ---
WON RN note: Patient admitted with acute hyperkalemia.
See H&P for complete history.
PMH: Scoliosis,giant cell arteritis, HTN, duodenal ulcer, osteoarthritis, psoriasis, B/L hip replacements, leg wounds.
Wound Location and type/assessment: Patient admitted with slow to heal laceration to R leg s/p fall and R arm skin tear. Seen at [facility] in past and when at [facility]. Patient admitted with blister to R heel, suspect stage 2 vs
stage 3 PI, serous filled with cloudy section in middle. Patient and did not know she had a blister on R heel, does not appear new. L heel is intact. Skin on legs very dry. Wound on R leg much improved compared to last picture taken on
11/26/23. Wound bed is pink and hyper granulated. Reviewed current photo with Dr. Marin and agreed to application of silver nitrate x 1 today by this parts data writer, then continue local wound care with Tubigrip. Patient to follow up with Dr. Marin upon
discharge, made aware of new R heel wound. Sacrum reported with YANN, nurse reports foam in place, will assess next time turned and notify if anything new.
Appetite: Good.
Pressure redistribution devices in place: Centrella Pro, patient can be on Accumax or air overlay if becomes difficult to turn. TruVue lite offloading heel boots when in bed. Air cushion when sitting.
Plan: Will order mineral oil for dry skin on legs. Silver nitrate applied to R leg wound per Dr. Marin. Dr. Ac made aware and approved along with local wound care and compression. R leg and arm wounds adaptic, abd pad and audie applied.
Tubigrip F knee high daily. Heels with foams, silicone foam to R heel to assess easily, offloading boots to both heels. Leg elevation when sitting with pillow under calves to offload heel.
Updated nurse Milla, care plan and will follow as needed.
Note to case management of equipment requested for discharge: VN if going home.
Recommend follow up at wound care center upon discharge.
[2023-12-31 12:51] LABS: Vitamin B12 513 pg/ml (239-931)
[2023-12-31] MEDS: LOVENOX 40 MG SC (17:23)
[2023-12-31] MEDS: LIPITOR 20 MG PO (17:25)
--- NOTE | 2023-12-31 17:29 | CM ---
Patient with Hx visual impairment, Right leg ulcer with Dx hypotension, weakness. Room air. Receiving IV Solucortef. Seen by wound care nurse. PT & OT Evals pending.
Met with patient and Rooks;
the patient resides with her in a 2 story house with 1 CURRY, and chair lift to 2nd floor.
the patient has been assisted with ADLs by her and ambulates using her RW.
DME - RW, commode, raised toilet seat, chair lift
VN - current with [facility] and wishes to resume
SNF - recent stay [place] [facility] [facility]
PCP - Curtis Mary
Pharmacy - [facility]
Plan follow up after PT/OT Evals.
[2023-12-31] MEDS: MELATONIN 5 MG PO (20:51)
[2023-12-31] MEDS: ULTRAM 50 MG PO (23:46)
[2024-01-01] VITALS (14 sets, daily range): BP systolic 106–177; BP diastolic 64–128; PULSE 72–75; O2SAT 99; BMI 18.4
[2024-01-01] MEDS: TYLENOL PO (03:02)
[2024-01-01 05:41] LABS: Blood Urea Nitrogen 20 mg/dl (7-17); Calcium 8.9 mg/dl (8.4-10.2); Carbon Dioxide 14 mmol/L (22-30); Chloride 110 mmol/L (98-107); Estimated Creatinine Clearance 44 ml/min; Glucose 135 mg/dl (70-99); Potassium 3.7 mmol/L (3.5-5.1); Sodium 137 mmol/L (135-145); eGFR > 60.00
[2024-01-01 05:46] LABS: % Basophils 0.1 % (0-2); % Immature Granulocytes 0.5 % (0-0.5); % Lymphocytes 11.7 % (20.5-51.1); % Monocytes 4.8 % (1.7-9.3); % Neutrophils 82.9 % (42.2-75.2); Absolute Monocytes 0.4 10^3/uL (0.1-0.6); Hematocrit 31.6 % (37.0-47.0); Mean Corp Hgb Conc. 35.1 g/dL (33.0-37.0); Mean Corpuscular Hgb 31.3 pg (27.0-31.0); Mean Platelet Volume 10.5 fL (7.4-10.4); Nucleated Red Blood Cells % 0 %; Platelet Count 253 10^3/uL (130-400); Red Blood Cell Count 3.55 10^6/uL (4.20-5.40); Red Cell Dist. Width 14.6 % (11.5-14.5); White Blood Cell Count 8.4 10^3/uL (4.8-10.8)
[2024-01-01 05:47] LABS: Hemoglobin 11.1 g/dL (12.0-16.0)
[2024-01-01] MEDS: SOLU-CORTEF 50 MG IV (08:03)
[2024-01-01] MEDS: TYLENOL 1000 MG PO ×3 (08:05→19:26)
[2024-01-01] MEDS: VIBRAMYCIN 100 MG PO ×2 (08:06→19:27)
[2024-01-01] MEDS: ASPIR LOW (ENTERIC COATED) 81 MG PO (08:06)
[2024-01-01] MEDS: THERAGRAN 1 TABLET PO (08:06)
[2024-01-01] MEDS: VITAMIN C 500 MG PO (08:07)
[2024-01-01] MEDS: MIRALAX PO (08:07)
[2024-01-01] MEDS: PROTONIX 40 MG PO (08:07)
[2024-01-01] MEDS: HYDROPHOR 1 APPLIC TOPICAL (08:09)
--- NOTE | 2024-01-01 09:07 | PTCARENOTE ---
Patient very confused and restless this morning. Night RN called patient's Garret to come in. Patient currently more calm. Medications given this AM and breakfast is ordered. Vital signs stable. Will monitor.
--- NOTE | 2024-01-01 10:31 | W.PN.HOSP.TC ---
Addendum entered and electronically signed by Mingo Couch MD 01/02/24 13:55:
.
Addendum entered and electronically signed by Mingo Couch MD 01/01/24 18:17:
stage 2 heel PI right POA
Addendum entered and electronically signed by Mingo Couch MD 01/01/24 12:18:
Moderate protein calorie malnutrition
Original Note:
Today's Communication/Plan
-
Add p.o. bicarb
Transfer patient to telemetry
PT OT needs to evaluate the patient today
I discussed about palliative care- seems to be interested
Case management consultation as the patient and both expressed interest in going home and not to rehab.
Given how weak she is she is at risk for readmission.
I also expressed my concern how he will be able to take her for rheumatology and ophthalmology appointments as outpatient. May need help with transportation
Transfer to tele
Discharge planning
Assessment / Plan
Assessment / Plan
Per patient was diagnosed with giant cell arteritis almost a year ago she was treated with prednisone and currently she is on 3 mg of prednisone now. She is followed by Dr. Cook for giant cell arteritis as well as glaucoma. She was told
that her eye will not improve. Normally patient has decreased vision in the left eye compared to the right eye. He is also followed by Dr. Echeverria from rheumatology. Patient was admitted here with generalized weakness a month ago was found to
have anemia and was found to have a peptic ulcer. She was discharged to [facility] she got home about 2 weeks ago. stated that for the past couple of days she has been generally very weak and also she needs more light in the room to see as
her vision is darker. Patient is able to count fingers on the left side and able to read with the letters on the right. No eye pain. No headache no fever reported. Denies any specific weakness any part of the body except for generalized
weakness. She denies any chest pain. She had mild shortness of breath earlier today. She also had some abdominal discomfort which is gone. Denies any diarrhea or constipation. Had a bowel movement yesterday. No fever again. She was recently
started on doxycycline for right leg ulcer with some discharge which she follows with Dr. Marin at [facility] [place]. She normally uses a stair lift but states that she needs more help with that in the past couple of days. She has bad
arthritis of the left leg And difficulty moving that leg which is not new. Patient was discharged to [facility] with p.o. potassium however she was not discharged from [facility] with that. 5 days ago [facility] called in prescription for potassium
which he started taking. Metoprolol is part of the medications list in the ER however the med list handed to me by the does not have metoprolol listed. Temazepam was also discontinued as per that list.
Patient is awake alert oriented
Cardiovascular system S1-S2, systolic murmur aortic area
Chest clear to auscultation
Abdomen soft and nontender bowel sounds appreciated
Lower extremities no edema
Neuro exam is nonfocal
Right christensen anterior ulcer looks stable
# Hypotension-unclear reason.
Possible relative adrenal insufficiency
Better with IVF and Stress dose steroids
Weaned to 40 mg daily per discussion with rheumatology yesterday until she is seen by rheumatology as outpatient.
She also has severe aortic stenosis which could be contributing
She is nontoxic-appearing clinically, infectious disease workup negative.
Lactic acid is normal
Continue outpatient doxycycline
# Severe aortic stenosis-detailed discussion with effects of aortic stenosis including hypotension, syncope, heart failure all discussed with patient and . Both decline the need for cardiology evaluation as they are not planning for any
surgery. She absolutely does not want surgery. 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 I also inquired if they have discussed with their children which has been says yes.
#Weakness- With GCA
MRI with no acute changes. Old stroke
# Hyperkalemia-hemolyzed specimen
Repeat potassium normal
# Metabolic acidosis-nongap
Add p.o. bicarb
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
She follows with Dr. Cook as well as Dr. Echeverria from rheumatology.
Will treat the patient with IV hydrocortisone for stress dose because of her hypotension
Slightly elevated CRP noted
Called Dr. Cook's office and left a message for call back on 's line. I have not heard back
Discussed with Dr. Echeverria yesterday-will place the patient on 40 mg prednisone with outpatient follow-up in 7 to 10 days.
# Right leg ulcer-anterolateral follows with wound care center in 2 weeks for
Continue doxycycline which was prescribed by outpatient doctor wound care daily
#Recent duodenal ulcer due to NSAIDs
Got a unit of packed red blood cells last admission
EGD showed a duodenal ulcer
Continue PPI
#Recent COVID-19 infection
# Hyperlipidemia-continue Zocor or equivalent
# Osteoporosis-on alendronate as outpatient
# Insomnia-continue melatonin
# Glaucoma-continue dorzolamide, Rhopressa eyedrops
# Psoriasis
# DVT prophylaxis-Lovenox
# CODE STATUS addressed with patient and -they confirmed DNR
Discussed with nursing
time 51 min
Anticipated Discharge: Within 24 hours
Subjective/Interval History
-
Date of Service: January 01, 2024
Objective Data
-
Labs:
Laboratory Results
01/01/24
04:39
WBC 8.4
Hgb 11.1 L D
Hct 31.6 L
Plt Count 253
Sodium 137
Potassium 3.7
Chloride 110 H
Carbon Dioxide 14 L*
BUN 20 H
Creatinine 0.7
Glucose 135 H
Calcium 8.9
Vital Signs:
Vital Signs
Temp Pulse Resp BP Pulse Ox
97.6 F 71 17 151/128 98
01/01/24 04:32 01/01/24 09:15 01/01/24 09:15 01/01/24 08:00 01/01/24 09:15
I&O
12/31/23 01/01/24 01/02/24
06:59 06:59 06:59
Intake Total 1000 / 1000 1844
Output Total 250 / 250
Balance 750 / 750 1844
--- NOTE | 2024-01-01 11:35 | CM ---
CM following re: discharge planning.
Reviewed pt's chart, met with pt and pt's Garret at bedside.
pt stated she just released from [facility] last week and is active with VN. Pt's stated he does not want pt goes to a SNF and he preferred pt returns back home with [facility] and family support. Both pt and her requested palliative
care.
CM consult regarding arranging VN services and palliative care noted.
CM spoke to VN liaison and she confirmed that pt is active with VN and they will resume VN services upon the discharge.
CM will make a referral to palliative care.
D/C plan: home with resumptions of [facility], palliative care and family support.
CM will follow with discharge plan updates as hospitalization progresses
[2024-01-01] MEDS: NON-FORMULARY ITEM BOTH EYES ×2 (12:33→22:10)
--- NOTE | 2024-01-01 12:36 | PTCARENOTE ---
Patient worked with PT/OT. Out of bed to chair with assistance x1 and rolling walker. Callahan in room with patient.
[2024-01-01] MEDS: DELTASONE 40 MG PO (13:41)
[2024-01-01] MEDS: COSOPT EYE DROPS 1 DROP BOTH EYES ×2 (13:41→19:27)
--- NOTE | 2024-01-01 14:32 | PN.CDI ---
Addendum entered and electronically signed by Mingo Couch MD 01/01/24 18:17:
see my note
Original Note:
CDI
- -
CDI:
Physician Documentation Request
Admit Date: 12/30/23 17:56
Dear Doctor Iza,
Clinical Indicators:
Patient admitted with hypotension.
12/31 PN, 'Moderate protein calorie malnutrition
12/31 RD note/assessment:-'During visit RD able to observe mild protrusion of clavicle, some apparent ribs,
temporal wasting.'
-'With intakes of < 75% in > 1 month and observed muscle and fat wasting pt meets
AND/ASPEN criteria for severe protein calorie malnutrition.'
Based on the information, which of the following most accurately represents the patient's nutritional status?
Severe Protein Calorie Malnutrition
Moderate Protein Calorie Malnutrition (documentation complete)
Other (please specify)
[place] Criteria ([facility] Hospitalist 2017)
2 or more criteria must be present for either
non severe or severe malnutrition
Note that the criteria differs related to the
presence of an acute or chronic illness
Acute Illness Chronic Illness
Energy Intake Non Severe: <75% for >7 days Non Severe: <75% for >1 month
Severe: <50% for >5 days Severe: <75% for >1 month
Weight Loss Non Severe: 1-2% over 1 week Non Severe: 5% over 1 month
5% over 1 month 7.5% over 3 months
7.5% over 3 months 10% over 6 months
1 year N/A 20% over 1 year
Severe: >2% over 1 week Severe: >5% over 1 month
>5% over 1 month >7.5% over 3 months
>7.5% over 3 months >10% over 6 months
1 year N/A >20% over 1 year
Body Fat Non Severe: Mild Decrease Non Severe: Mild Loss
Severe: Moderate Decrease Severe: Severe Loss
Muscle Mass Non Severe: Mild Decrease Non Severe: Mild Loss
Severe: Moderate Decrease Severe: Severe Loss
Fluid Accumulation Non Severe: Mild Accumulation Non Severe: Mild Accumulation
Severe: Moderate to severe Severe: Moderate to severe
accumulation accumulation
Reduced Storekeeper Helper Strength Non Severe: N/A Non Severe: N/A
Severe: Measurably reduced Severe: Measurably reduced
Additional criteria that can be used to Determine if Mild or Moderate Malnutrition (Merck Manual 2018)
Mild Moderate Severe
Albumin gm/dl <3.0 gm/dl <2.5 gm/dl <2.0 gm/dl
Pre Albumin mg/dl <15 gm/dl <10 mg/dl <5.0 mg/dl
BMI <18.5 <17 <16
Use of terms such as suspected, likely, concern for, or probable (associated with a specific diagnosis that is being evaluated, monitored, or treated as if it exists) are acceptable and can be coded in the inpatient setting, when documented at the
time of discharge.
Thank you,
MIGUEL Hendricks RN
CDI Specialist
available via tiger text
Please use your independent medical judgment in providing your response.
--- NOTE | 2024-01-01 14:40 | PN.CDI ---
CDI
- -
CDI:
Physician Documentation Request
Admit Date: 12/30/23 17:56
Dear Doctor Iza,
Clinical Indicators:
Patient admitted with hypotension.
12/30 WO RN skin/wound assessment: Right Heel Stage 2 Pressure Injury, POA
Offloading boots ordered; silicone protective foam applied
Physician documentation of the type and location of wounds is required for compliant documentation. Based on the above clinical findings and your assessment, please provide the following in your progress note:
1. Location of the ulcer/wound, including laterality.
2. Type (etiology) of ulcer/wound:
- Pressure (decubitus) ulcer
- Other, please specify
- Unable to determine
3. If a pressure ulcer, please also include the stage* of the ulcer:
- Stage 1 - Skin intact, non-blanchable redness
- Stage 2 - Partial thickness loss of dermis, includes intact or open blister
- Stage 3 - Full thickness tissue not including bone, tendon or muscle
- Stage 4 - Full thickness tissue loss, including exposed bone, tendon or muscle
- Unstageable - Full thickness loss in which the base of the ulcer is covered by slough (yellow, henry, mandujano, green or brown) and/or eschar (henry, brown or black) in the wound bed.
- Unable to determine
Use of terms such as suspected, likely, concern for, or probable (associated with a specific diagnosis that is being evaluated, monitored, or treated as if it exists) are acceptable and can be coded in the inpatient setting, when documented at the
time of discharge.
Thank you,
MIGUEL Hendricks RN
CDI Specialist
available via tiger text
Please use your independent medical judgment in providing your response.
*Source: National Pressure Ulcer Advisory Panel (NPUAP)
[2024-01-01] MEDS: SODIUM BICARBONATE 650 MG PO ×2 (16:01→21:36)
[2024-01-01 17:36] LABS: Procalcitonin < 0.05 ng/ml (0.0-0.25)
[2024-01-01] MEDS: LOVENOX 40 MG SC (18:01)
[2024-01-01] MEDS: LIPITOR 20 MG PO (18:01)
--- NOTE | 2024-01-01 19:22 | PTCARENOTE ---
Report given to Enrique RN. Patient to be transported to 4th floor room 404 bed 1. All belongings packed up.
[2024-01-01] MEDS: NON-FORMULARY ITEM 1 DROP BOTH EYES (19:28)
--- NOTE | 2024-01-01 19:50 | PTCARENOTE ---
Pt arrived from IMU via wheelchair w/ family member at bedside. Pt is AAOx2 disoriented to time, w/o complaints of pain, VSS. Pt is oriented to room resting comfortably w/ no complaints at this time.
[2024-01-01] MEDS: MELATONIN 5 MG PO (21:36)
--- NOTE | 2024-01-01 23:00 | PTCARENOTE ---
Pt refused to have vital signs taken and foam boots to be placed. RN educated the importance to monitor vital signs and prevent skin breakdown on B/L heels. Pt refused, stated do not touch her. RN placed call louis within reach, pt resting
comfortably.
[2024-01-02] VITALS (7 sets, daily range): BP systolic 133–180; BP diastolic 69–98; PULSE 68–81; BMI 19.5
[2024-01-02] MEDS: TYLENOL PO (02:17)
[2024-01-02 06:08] LABS: Blood Urea Nitrogen 24 mg/dl (7-17); Calcium 8.9 mg/dl (8.4-10.2); Carbon Dioxide 20 mmol/L (22-30); Chloride 110 mmol/L (98-107); Estimated Creatinine Clearance 47 ml/min; Glucose 117 mg/dl (70-99); Potassium 3.3 mmol/L (3.5-5.1); Sodium 139 mmol/L (135-145); eGFR > 60.00
[2024-01-02 10:13] LABS: Urine Albumin Negative (Neg - Trace); Urine Bilirubin Negative (Negative); Urine Character Clear (Clear); Urine Color Yellow; Urine Glucose Negative (Negative); Urine Ketone Negative (Negative); Urine Leukocyte Trace (Negative); Urine Nitrite Negative (Negative); Urine Occult Blood Negative (Negative); Urine Urobilinogen Negative (Neg - 1+); Urine pH 6.5 (5.0-9.0)
[2024-01-02] MEDS: MIRALAX PO (10:25)
[2024-01-02] MEDS: TYLENOL 1000 MG PO ×3 (10:26→20:46)
[2024-01-02] MEDS: SODIUM BICARBONATE 650 MG PO (10:26)
[2024-01-02] MEDS: THERAGRAN 1 TABLET PO (10:26)
[2024-01-02] MEDS: ASPIR LOW (ENTERIC COATED) 81 MG PO (10:26)
[2024-01-02] MEDS: DELTASONE 40 MG PO (10:27)
[2024-01-02 11:10] LABS: Urine Red Blood Cell 0-2 /HPF (0-2); Urine White Cell 0-2 /HPF (0-5)
[2024-01-02 11:11] LABS: Urine Bacteria Few (Negative)
--- NOTE | 2024-01-02 13:51 | W.PN.HOSP.TC ---
Addendum entered and electronically signed by Mingo Couch MD 01/02/24 13:56:
Repeat blood pressure-no treatment
Original Note:
Today's Communication/Plan
-
EEG
Replace K
Psychiatric valuation
Discharge planning
Assessment / Plan
Assessment / Plan
Per patient was diagnosed with giant cell arteritis almost a year ago she was treated with prednisone and currently she is on 3 mg of prednisone now. She is followed by Dr. Cook for giant cell arteritis as well as glaucoma. She was told
that her eye will not improve. Normally patient has decreased vision in the left eye compared to the right eye. He is also followed by Dr. Echeverria from rheumatology. Patient was admitted here with generalized weakness a month ago was found to
have anemia and was found to have a peptic ulcer. She was discharged to [facility] she got home about 2 weeks ago. stated that for the past couple of days she has been generally very weak and also she needs more light in the room to see as
her vision is darker. Patient is able to count fingers on the left side and able to read with the letters on the right. No eye pain. No headache no fever reported. Denies any specific weakness any part of the body except for generalized
weakness. She denies any chest pain. She had mild shortness of breath earlier today. She also had some abdominal discomfort which is gone. Denies any diarrhea or constipation. Had a bowel movement yesterday. No fever again. She was recently
started on doxycycline for right leg ulcer with some discharge which she follows with Dr. Marin at wound care center. She normally uses a stair lift but states that she needs more help with that in the past couple of days. She has bad
arthritis of the left leg And difficulty moving that leg which is not new. Patient was discharged to [facility] with p.o. potassium however she was not discharged from [facility] with that. 5 days ago [facility] called in prescription for potassium
which he started taking. Metoprolol is part of the medications list in the ER however the med list handed to me by the does not have metoprolol listed. Temazepam was also discontinued as per that list.
Today patient closed her eyes and would not open them. Nursing reports that patient was biting and he was able to get her to say her name. Patient states that she feels feeling terrible. She cannot elaborate anything more than that. She also
thinks that she should go to the emergency room. She realizes then that she is in the hospital. She also understands that she cannot see timber grader until she gets out of the hospital. We had discussed my plans after talking to rheumatology
yesterday. Apart from the nonspecific symptoms she cannot point to any other symptoms. Admits to feeling anxious. She also has difficulty with her vision which I believe is causing her more anxiety and seeing things. She also has cognitive
dysfunction which is adding onto her hospital induced confusion/delirium. She is interested in talking to psychiatrist
Patient is awake alert oriented
Cardiovascular system S1-S2, systolic murmur aortic area
Chest clear to auscultation
Abdomen soft and nontender bowel sounds appreciated
Lower extremities no edema
Neuro exam is nonfocal
Right christensen anterior ulcer looks stable
# TME/hospital induced delirium with underlying cognitive dysfunction and anxiety
# Hypotension-unclear reason.
Possible relative adrenal insufficiency
Better with IVF and Stress dose steroids
Weaned to 40 mg daily per discussion with rheumatology 12/31/2023 until she is seen by rheumatology as outpatient.
She also has severe aortic stenosis which could be contributing
She is nontoxic-appearing clinically, infectious disease workup negative.
Lactic acid is normal
Continue outpatient doxycycline
# Severe aortic stenosis-detailed discussion with effects of aortic stenosis including hypotension, syncope, heart failure all discussed with patient and . Both decline the need for cardiology evaluation as they are not planning for any
surgery. She absolutely does not want surgery. 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 I also inquired if they have discussed with their children which has been says yes.
#Weakness- With GCA
MRI with no acute changes. Old stroke
# Hyperkalemia-hemolyzed specimen
Repeat potassium normal reviewed this with patient and
#Verhoctxhvv-stx-grxy of potassium ordered
# Metabolic acidosis-nongap
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
Daily p.o. bicarb and repeat BMP as outpatient
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
She follows with Dr. Cook as well as Dr. Echeverria from rheumatology.
Will treat the patient with IV hydrocortisone for stress dose because of her hypotension
Slightly elevated CRP noted
Called Dr. Cook's office and left a message for call back on 's line. I have not heard back
Discussed with Dr. Echeverria -will place the patient on 40 mg prednisone with outpatient follow-up in 7 to 10 days.
# Right leg ulcer-anterolateral follows with wound care center in 2 weeks for
Continue doxycycline which was prescribed by outpatient doctor wound care daily
#Recent duodenal ulcer due to NSAIDs
Got a unit of packed red blood cells last admission
EGD showed a duodenal ulcer
Continue PPI
#Recent COVID-19 infection
# Hyperlipidemia-continue Zocor or equivalent
# Osteoporosis-on alendronate as outpatient
# Insomnia-continue melatonin
# Glaucoma-continue dorzolamide, Rhopressa eyedrops
# Psoriasis
# DVT prophylaxis-Lovenox
# CODE STATUS addressed with patient and -they confirmed DNR
Discussed with nursing
Discussed with at bedside
time 50 min
Anticipated Discharge: Within 24 hours
Subjective/Interval History
-
Date of Service: January 02, 2024
Objective Data
-
Labs:
Laboratory Results
01/02/24
04:54
Sodium 139
Potassium 3.3 L
Chloride 110 H
Carbon Dioxide 20 L
BUN 24 H
Creatinine 0.7
Glucose 117 H
Calcium 8.9
Vital Signs:
Vital Signs
Temp Pulse Resp BP Pulse Ox
97.4 F 66 18 162/81 96
01/02/24 11:20 01/02/24 13:27 01/02/24 11:20 01/02/24 13:27 01/02/24 11:20
I&O
01/01/24 01/02/24 01/03/24
06:59 06:59 06:59
Intake Total 1844 / 1844 1440 / 1440
Balance 1844 1440 / 1440
[2024-01-02] MEDS: PROTONIX 40 MG PO (15:23)
[2024-01-02] MEDS: VITAMIN C 500 MG PO (15:23)
[2024-01-02] MEDS: HYDROPHOR 1 APPLIC TOPICAL (15:23)
[2024-01-02] MEDS: KCL 20 MEQ PO (15:23)
[2024-01-02] MEDS: VIBRAMYCIN 100 MG PO ×2 (15:23→20:46)
[2024-01-02] MEDS: COSOPT EYE DROPS 1 DROP BOTH EYES ×2 (15:24→20:46)
--- NOTE | 2024-01-02 17:10 | CON.MD ---
Consultation - Medical
-
88 yo F w/ PMH of giant cell arteritis, glaucoma, recent peptic ulcer, recent dx of anemia, arthritis, R leg ulcer, severe aortic stenosis, HLD, recent COVID infection, psoriasis and unspecified cognitive dysfunction. Recently at [employer] [facility] for
several weeks. Psychiatry consulted for concerns fo anxiety and TME/delirium with AVH.
Pt seen & evaluated at bedside with present. About 6 months ago reports starting to feel 'weird', would feel like she was in a different room than she actually was which would be distressing and cause anxiety. Describes this as happening
more frequently & intensely the past few weeks to a month, as well as at times seeing things and becoming confused as to where she is. reports that a day or 2 ago she was seeing things on the wall and thought she was at the set up mechanic. Waxing
and waning orientation described. No prior hx of psychiatric symptoms.
Of note, suspect that pts may also have some cognitive dysfunctioon as he reports giant cell arteritis being diagnosed last year, then 3 yrs ago then 4 yrs ago. Onset of pts sxs described as starting 6 months ago but also more recently, so
unclear exact timeline.
Discussed with pt and that her sxs sound consistent with a likely delirium, provided education as to how this is related to an underlying illness and how this can cause her sxs. Discussed short term use of low dose risperidone to help manage
acute distress which often occurs when confused or hallucinating or possibly paranoid at times.
TME/delirium
MSE: female, good eye contact, speech quiet but appropriate. Mood is nervous & affect is anxious at times. Denies si/hi, avh and possibly paranoia at times. Thought process is goal directed but at times can be disjointed. Oriented. FOrgetful.
Insight/judgement moderate.
Trial of low dose risperidone 0.25mg HS + 0.25mg prn acute distress from avh/paranoia (explained to them this is short term & should be stopped once underlying medical issues are addressed)
[2024-01-02] MEDS: LIPITOR 20 MG PO (17:13)
[2024-01-02] MEDS: LOVENOX 40 MG SC (17:13)
[2024-01-02] MEDS: RISPERDAL 0.25 MG PO ×2 (21:28→23:44)
[2024-01-02] MEDS: MELATONIN 2.5 MG PO (21:28)
[2024-01-02] MEDS: NON-FORMULARY ITEM 1 DROP BOTH EYES (21:31)
[2024-01-03] MEDS: TYLENOL 1000 MG PO ×3 (00:59→16:30)
[2024-01-03] MEDS: MELATONIN 3 MG PO (01:23)
[2024-01-03 04:50] VITALS: BMI 19.4
[2024-01-03 07:25] VITALS: BP 159/82
[2024-01-03 09:27] LABS: Blood Urea Nitrogen 26 mg/dl (7-17); Calcium 9.6 mg/dl (8.4-10.2); Carbon Dioxide 21 mmol/L (22-30); Chloride 108 mmol/L (98-107); Estimated Creatinine Clearance 41 ml/min; Glucose 83 mg/dl (70-99); Potassium 3.5 mmol/L (3.5-5.1); Sodium 137 mmol/L (135-145); eGFR > 60.00
[2024-01-03] MEDS: PROTONIX 40 MG PO (09:35)
[2024-01-03] MEDS: VIBRAMYCIN 100 MG PO (09:35)
[2024-01-03] MEDS: DELTASONE 40 MG PO (09:36)
[2024-01-03] MEDS: ASPIR LOW (ENTERIC COATED) 81 MG PO (09:36)
[2024-01-03] MEDS: SODIUM BICARBONATE 650 MG PO (09:36)
[2024-01-03] MEDS: THERAGRAN 1 TABLET PO (09:36)
[2024-01-03] MEDS: MIRALAX 17 GRAMS PO (09:36)
[2024-01-03] MEDS: HYDROPHOR 1 APPLIC TOPICAL (09:37)
[2024-01-03] MEDS: COSOPT EYE DROPS 1 DROP BOTH EYES (09:37)
[2024-01-03] MEDS: VITAMIN C 500 MG PO (09:46)
[2024-01-03 10:04] VITALS: BP 151/85; BP 154/91; BP 165/83; PULSE 114; PULSE 74; PULSE 89
--- NOTE | 2024-01-03 10:44 | VNURNOTE ---
[facility] resumption of care completed in [facility] after review of chart and discussion with patient and spouse. Spouse verbalized concern about needing caregiver at home if patient continues to be weak. Private caregiver resource provided and discussed
with both. [facility] confirmed [facility].
[2024-01-03 11:19] VITALS: BP 115/67
--- NOTE | 2024-01-03 14:48 | W.PN.UPDATE ---
Update Note
Progress Note Update
Pt seen & evaluated at bedside with . SHe reports that she wasn't able to sleep at night and felt scared/distressed - says took a prn dose and it seems was able to sleep then. reports however that she seems 'much clearer' today and
more like herself though still having sxs. Pt initially did not want to continue risperidone as she attributed the poor sleep to the risperidone, however did explain that this is likely unfortunate timing and its more likely that without the
risperidone her night would have been even worse.
Increase risperidone to 0.5mg HS + 0.25mg prn acute distress
- again reminded pt and that this is for short term use and only being used due to significant distress she experiences from avh/paranoia (even with attempts to calm & redirect by )
--- NOTE | 2024-01-03 15:11 | EEG.RPT ---
Electroencephalogram Report
Recording
Date of EE01/03/24
Length of EEG recordin minutes
Done with Video Recording: Yes
Patient Status: Inpatient
Recording Conditions: Awake and Drowsy
Hyperventilation Performed: No
Photic Stimulation Performed: Yes
Report
Less THAN 1 HOUR EEG INTERPRETATION:
Unremarkable EEG for age
CLINICAL CORRELATION:
A normal EEG does not rule out a diagnosis of epilepsy.� If clinical suspicion for seizure persists, a prolonged recording may be warranted.
Clinical correlation is advised.
METHODS:
A 21 channel digitized electroencephalogram (EEG) was performed using the 10/20 international system of electrode placement and one-lead of ECG recorded. Duration 28 minutes.
ELECTROENCEPHALOGRAPHER IMPRESSION(S):
Quality of study
Good
Background
Mixed medium amplitude mix of alpha and theta frequencies
Normal posterior dominant rhythm of 10 hz attenuates with eye opening
There were no significant asymmetries of background activity noted.
Sleep
Drowsiness present
Stage 1 present
Photic Stimulation
No activation
ECG
Normal sinus rhythm
[2024-01-03 15:23] VITALS: BP 123/76
[2024-01-03 16:03] VITALS: BP 109/77; PULSE 95; O2SAT 99
--- NOTE | 2024-01-03 16:11 | W.PN.HOSP.TC ---
Addendum entered and electronically signed by Mingo Couch MD 01/03/24 16:47:
Dictation- [id number]
Original Note:
Today's Communication/Plan
-
Discharge
Assessment / Plan
Assessment / Plan
Per patient was diagnosed with giant cell arteritis almost a year ago she was treated with prednisone and currently she is on 3 mg of prednisone now. She is followed by Dr. Cook for giant cell arteritis as well as glaucoma. She was told
that her eye will not improve. Normally patient has decreased vision in the left eye compared to the right eye. He is also followed by Dr. Echeverria from rheumatology. Patient was admitted here with generalized weakness a month ago was found to
have anemia and was found to have a peptic ulcer. She was discharged to [facility] she got home about 2 weeks ago. stated that for the past couple of days she has been generally very weak and also she needs more light in the room to see as
her vision is darker. Patient is able to count fingers on the left side and able to read with the letters on the right. No eye pain. No headache no fever reported. Denies any specific weakness any part of the body except for generalized
weakness. She denies any chest pain. She had mild shortness of breath earlier today. She also had some abdominal discomfort which is gone. Denies any diarrhea or constipation. Had a bowel movement yesterday. No fever again. She was recently
started on doxycycline for right leg ulcer with some discharge which she follows with Dr. Marin at [facility]. She normally uses a stair lift but states that she needs more help with that in the past couple of days. She has bad
arthritis of the left leg And difficulty moving that leg which is not new. Patient was discharged to [facility] with p.o. potassium however she was not discharged from [facility] with that. 5 days ago [facility] called in prescription for potassium
which he started taking. Metoprolol is part of the medications list in the ER however the med list handed to me by the does not have metoprolol listed. Temazepam was also discontinued as per that list.
Patient is awake alert oriented, pleasant
Sitting in a chair
Cardiovascular system S1-S2, systolic murmur aortic area
Chest clear to auscultation
Abdomen soft and nontender bowel sounds appreciated
Lower extremities no edema
Neuro exam is nonfocal
Right christensen anterior ulcer looks stable
Stage I pressure injury in the sacral area
# TME/hospital induced delirium with underlying cognitive dysfunction and anxiety
Respite on 0.5 mg started at nighttime I will give her a prescription
Discussed with the patient and about slowly tapering it off once she is on her baseline dose of steroids.
EEG normal
# Hypotension-unclear reason.
Possible relative adrenal insufficiency
Better with IVF and Stress dose steroids
Weaned to 40 mg daily per discussion with rheumatology 12/31/2023 until she is seen by rheumatology as outpatient.
She also has severe aortic stenosis which could be contributing
She is nontoxic-appearing clinically, infectious disease workup negative.
Lactic acid is normal
Continue outpatient doxycycline
# Severe aortic stenosis-detailed discussion with effects of aortic stenosis including hypotension, syncope, heart failure all discussed with patient and . Both decline the need for cardiology evaluation as they are not planning for any
surgery. She absolutely does not want surgery. 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 I also inquired if they have discussed with their children which says yes.
# Weakness- With GCA
MRI with no acute changes. Old stroke
# Hyperkalemia-hemolyzed specimen
Repeat potassium normal reviewed this with patient and
# Tdejtvqwbxd-gri-bzsv of potassium ordered
# Metabolic acidosis-nongap
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
Daily p.o. bicarb and repeat BMP as outpatient 1 week
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
She follows with Dr. Cook as well as Dr. Echeverria from rheumatology.
Will treat the patient with IV hydrocortisone for stress dose because of her hypotension
Slightly elevated CRP noted
Called Dr. Cook's office and left a message for call back on 's line. I have not heard back
Discussed with Dr. Echeverria -will place the patient on 40 mg prednisone with outpatient follow-up in 7 to 10 days.
# Right leg ulcer-anterolateral follows with wound care center in 2 weeks for
Continue doxycycline which was prescribed by outpatient doctor wound care daily
# Recent duodenal ulcer due to NSAIDs
Got a unit of packed red blood cells last admission
EGD showed a duodenal ulcer
Continue PPI
# Recent COVID-19 infection
# Hyperlipidemia-continue Zocor or equivalent
# Osteoporosis-on alendronate as outpatient
# Insomnia-continue melatonin
# Glaucoma-continue dorzolamide, Rhopressa eyedrops
# Psoriasis
# DVT prophylaxis-Lovenox
# CODE STATUS addressed with patient and -they confirmed DNR
Discussed with nursing
Discussed with at bedside
D/W Wound care
D/W PT
Patient's grandson is a physician at [facility]. Spoke to him Dr.Kyle Beckman [phone] . Updated hospital course and patient's condition. He agrees with plan of care and management.
I asked the again if he can manage her at home. He says yes. Both anxious to get home.
Discharge time 40 min
Anticipated Discharge: Today
Subjective/Interval History
-
Date of Service: January 03, 2024
Objective Data
-
Labs:
Laboratory Results
01/03/24
08:21
Sodium 137
Potassium 3.5
Chloride 108 H
Carbon Dioxide 21 L
BUN 26 H
Creatinine 0.8
Glucose 83
Calcium 9.6
Vital Signs:
Vital Signs
Temp Pulse Resp BP Pulse Ox
98.1 F 97 18 123/76 96
01/03/24 15:23 01/03/24 15:23 01/03/24 15:23 01/03/24 15:23 01/03/24 15:23
I&O
01/02/24 01/03/24 01/04/24
06:59 06:59 06:59
Intake Total 1440 / 1440 480 / 480
Balance 1440 / 1440 480 / 480
--- NOTE | 2024-01-03 16:17 | WOUNDNOTE ---
WOC RN NOTE: Patient visited prior to discharge to follow up on new [facility] consult for sacral wound. Upon assessment, sacrum is red, non blanchable on bony prominence, no open wound (Stage 1 PI). Patient given air cushion for chair. Patient stood with
assistance of PT. Reviewed plan of care and wound care with . Explained to that wounds may worsen and he should contact [facility]N or primary care provider if this happens. Reviewed all preventative measures for skin including protein at each
meal, use of air cushion or gel cushion in recliner and chair, and off-loading heels in bed and chair. Protective silicone foam was maintained at time of assessment. given sacral silicone foams for home use. All questions answered. Patient
should continue follow up with Dr. Marin at [facility] for right heel and right arm wounds. Plan is for discharge to home with VN. CARRILLO Long given update.
--- NOTE | 2024-01-03 16:28 | W.DS.TRANS ---
DC Summary - Therapy Technician
-
Discharge Instructions:
Discharge Diagnosis/Procedures Episodes of confusion, metabolic acidosis,
cognitive impairment, giant cell arteritis,
right leg ulcer, history of duodenal ulcer, high
cholesterol, osteoporosis, insomnia, glaucoma
Diet As tolerated
Activity As tolerated,With assistance
Driving Restrictions No driving
Other Services VN
Instructions:
Stand-Alone Forms:
Changes to Home Medications: Yes
Discharge Medications:
DC Medications w/original date entered in [employer]
simvastatin 40 mg tablet 40 mg PO QPM High cholesterol 09/27/11
alendronate 70 mg tablet 70 mg PO WE@0800 osteoporosis 06/18/21
aspirin 81 mg tablet,delayed release 81 mg PO DAILY Blood clot prevention/tx 06/15/22
dorzolamide 22.3 mg-timolol 6.8 mg/mL eye drops 1 drp BOTH EYES BID Eye condition 06/15/22
metoprolol succinate 25 mg tablet,extended release 24 hr 12.5 mg PO DAILY Blood pressure 06/15/22
netarsudil 0.02 % eye drops (Rhopressa) 1 drp BOTH EYES HS Eye Condition 11/24/23
therapeutic multivitamin 1 tab PO DAILY Supplement 11/24/23
acetaminophen 500 mg tablet (Tylenol Extra Strength) 1,000 mg PO Q6H pain 12/30/23
ascorbic acid (vitamin C) 500 mg tablet (Vitamin C) 500 mg PO DAILY supplement 12/30/23
melatonin 1 mg tablet 1 mg PO HS sleep 12/30/23
pantoprazole 40 mg tablet,delayed release 40 mg PO DAILY Gastrointestinal Issue 12/30/23
polyethylene glycol 3350 17 gram oral powder packet (HealthyLax) 17 g PO DAILY Constipation #0 ea 01/02/24
prednisone 20 mg tablet 40 mg (2 x 20 mg) PO DAILY Autoimmune disorder #30 tabs 01/02/24
sodium bicarbonate 650 mg tablet 325 mg (1/2 x 650 mg) PO DAILY #60 tabs 01/03/24
Home Medication Changes
new
polyethylene glycol 3350 17 gram oral powder packet (HealthyLax) 17 g PO DAILY Constipation #0 ea 01/02/24
prednisone 20 mg tablet 40 mg (2 x 20 mg) PO DAILY Autoimmune disorder #30 tabs 01/02/24
sodium bicarbonate 650 mg tablet 325 mg (1/2 x 650 mg) PO DAILY #60 tabs 01/03/24
Pending Results: No
--- NOTE | 2024-01-03 16:46 | W.DS.TRANS ---
DC Summary - Accounting/Finance Tutor
-
Discharge Instructions:
Discharge Diagnosis/Procedures Episodes of confusion, metabolic acidosis,
cognitive impairment, giant cell arteritis,
right leg ulcer, history of duodenal ulcer, high
cholesterol, osteoporosis, insomnia, glaucoma
Diet As tolerated
Activity As tolerated,With assistance
Driving Restrictions No driving
Other Services VN
Instructions:
Stand-Alone Forms:
Changes to Home Medications: Yes
Discharge Medications:
DC Medications w/original date entered in [employer]
simvastatin 40 mg tablet 40 mg PO QPM High cholesterol 09/27/11
alendronate 70 mg tablet 70 mg PO WE@0800 osteoporosis 06/18/21
aspirin 81 mg tablet,delayed release 81 mg PO DAILY Blood clot prevention/tx 06/15/22
dorzolamide 22.3 mg-timolol 6.8 mg/mL eye drops 1 drp BOTH EYES BID Eye condition 06/15/22
metoprolol succinate 25 mg tablet,extended release 24 hr 12.5 mg PO DAILY Blood pressure 06/15/22
netarsudil 0.02 % eye drops (Rhopressa) 1 drp BOTH EYES HS Eye Condition 11/24/23
therapeutic multivitamin 1 tab PO DAILY Supplement 11/24/23
acetaminophen 500 mg tablet (Tylenol Extra Strength) 1,000 mg PO Q6H pain 12/30/23
ascorbic acid (vitamin C) 500 mg tablet (Vitamin C) 500 mg PO DAILY supplement 12/30/23
melatonin 1 mg tablet 1 mg PO HS sleep 12/30/23
pantoprazole 40 mg tablet,delayed release 40 mg PO DAILY Gastrointestinal Issue 12/30/23
polyethylene glycol 3350 17 gram oral powder packet (HealthyLax) 17 g PO DAILY Constipation #0 ea 01/02/24
prednisone 20 mg tablet 40 mg (2 x 20 mg) PO DAILY Autoimmune disorder #30 tabs 01/02/24
risperidone 0.25 mg tablet 0.5 mg (2 x 0.25 mg) PO HS Mental Health/Anxiety #30 tabs 01/03/24
sodium bicarbonate 650 mg tablet 325 mg (1/2 x 650 mg) PO DAILY #60 tabs 01/03/24
Home Medication Changes
new
polyethylene glycol 3350 17 gram oral powder packet (HealthyLax) 17 g PO DAILY Constipation #0 ea 01/02/24
prednisone 20 mg tablet 40 mg (2 x 20 mg) PO DAILY Autoimmune disorder #30 tabs 01/02/24
risperidone 0.25 mg tablet 0.5 mg (2 x 0.25 mg) PO HS Mental Health/Anxiety #30 tabs 01/03/24
sodium bicarbonate 650 mg tablet 325 mg (1/2 x 650 mg) PO DAILY #60 tabs 01/03/24
Pending Results: No
--- NOTE | 2024-01-03 17:00 | CM ---
MD entered order for discharge.
Spoke with and .
IMM reviewed and agreed with dc.IMM signed on chart.
will drive her home.
PLAN Home with [facility]
== END 2024-01-03 17:20 | disposition home health service (06) | DRG 545 ==
LOC: 4 EAST ACU 17:56
PROVIDERS: Clinical Nurse Specialist Family Health; ADMITTING PHYSICIAN Hospitalist; CONSULT PHYSICIAN Psychiatry & Neurology Psychiatry; EMERGENCY PHYSICIAN Student in an Organized Health Care Education/Training Program; FAMILY PHYSICIAN Internal Medicine
DX: M31.6 Other giant cell arteritis (principal); G92.8 Other toxic encephalopathy; E44.0 Moderate protein-calorie malnutrition; E87.20 Acidosis, unspecified; Z68.1 Body mass index [BMI] 19.9 or less, adult; L89.612 Pressure ulcer of right heel, stage 2; E78.00 Pure hypercholesterolemia, unspecified; E87.5 Hyperkalemia; E87.6 Hypokalemia; I35.0 Nonrheumatic aortic (valve) stenosis; M81.0 Age-related osteoporosis without current pathological fracture
CPT/HCPCS: 70551; 71046; 80048; 81003; 81015; 82607; 82728; 83540; 83550; 83605; 84145; 85025; 85652; 86140; 87040; 87070; 93005; 93306; 95816; 96361; 96374; 96375; 97163; 97167; 97530; 99291

== ENCOUNTER → 2024-01-23 11:05 | Outpatient (REF) | payer MEDICARE, SELFPAY | LOC: WOUND 11:05 | PROVIDERS: ATTENDING PHYSICIAN Surgery; FAMILY PHYSICIAN Internal Medicine | DX: L89.610 Pressure ulcer of right heel, unstageable (principal); I10 Essential (primary) hypertension; M31.6 Other giant cell arteritis; D64.9 Anemia, unspecified | CPT/HCPCS: 99213 ==

== ENCOUNTER → 2024-01-27 09:09 | Outpatient (REF) | payer MEDICARE, SELFPAY ==
[2024-01-27 10:11] LABS: % Basophils 0.1 % (0-2); % Eosinophils 0.4 % (0-6); % Immature Granulocytes 0.7 % (0-0.5); % Lymphocytes 26.8 % (20.5-51.1); % Monocytes 7.5 % (1.7-9.3); % Neutrophils 64.5 % (42.2-75.2); Absolute Immature Granulocytes 0.1 10^3/uL (0-0.05); Absolute Lymphocytes 1.9 10^3/uL (1.2-3.4); Absolute Monocytes 0.5 10^3/uL (0.1-0.6); Absolute Neutrophils 4.6 10^3/uL (1.4-6.5); Hematocrit 32.5 % (37.0-47.0); Hemoglobin 10.8 g/dL (12.0-16.0); Mean Corp Hgb Conc. 33.2 g/dL (33.0-37.0); Mean Corpuscular Hgb 31.9 pg (27.0-31.0); Mean Corpuscular Volume 95.9 fL (81.0-99.0); Mean Platelet Volume 9.5 fL (7.4-10.4); Nucleated Red Blood Cells % 0 %; Platelet Count 244 10^3/uL (130-400); Red Blood Cell Count 3.39 10^6/uL (4.20-5.40); Red Cell Dist. Width 18.1 % (11.5-14.5); White Blood Cell Count 7.1 10^3/uL (4.8-10.8)
[2024-01-27 10:45] LABS: ALT (SGPT) 19 U/L (0-35); AST (SGOT) 31 U/L (14-36); Albumin 4.1 g/dl (3.5-5.0); Alkaline Phosphatase 68 U/L (38-126); Blood Urea Nitrogen 29 mg/dl (7-17); Calcium 9.9 mg/dl (8.4-10.2); Carbon Dioxide 19 mmol/L (22-30); Chloride 110 mmol/L (98-107); Glucose 85 mg/dl (70-99); Magnesium 2.3 mg/dl (1.6-2.3); Potassium 4.1 mmol/L (3.5-5.1); Sodium 140 mmol/L (135-145); Total Bilirubin 0.7 mg/dl (0.2-1.3); Total Protein 6.6 g/dl (6.3-8.2); eGFR > 60.00
[2024-01-27 10:55] LABS: Complement C3 121 mg/dl (88-165)
[2024-01-27 11:00] LABS: C-Reactive Protein < 5.00 mg/L (0.0-10.00)
[2024-01-27 11:12] LABS: Erythrocyte Sed Rate 19 mm/hour (0-20)
[2024-01-27 11:29] LABS: Cortisol, Random 4.6 ug/dl
[2024-01-27 13:44] LABS: Urine Albumin Trace (Neg - Trace); Urine Bilirubin Negative (Negative); Urine Character Clear (Clear); Urine Color Yellow; Urine Glucose Negative (Negative); Urine Ketone Negative (Negative); Urine Leukocyte 2+ (Negative); Urine Nitrite Negative (Negative); Urine Occult Blood Negative (Negative); Urine Specific Gravity 1.015 (<1.030); Urine Urobilinogen Negative (Neg - 1+)
[2024-01-27 14:48] LABS: Urine Bacteria Few (Negative); Urine Urothelial Cell 0-2 /LPF (FEW); Urine White Cell 30-40 /HPF (0-5)
[2024-01-28 20:51] LABS: ANA, IgG Reflex to HEp-2 None Detected (None Detected)
[2024-01-29 00:37] LABS: Myeloperoxidase Antibody 5 AU/mL (0-19); Serine Protease-3, IgG 0 AU/mL (0-19)
[2024-01-29 01:40] LABS: SSA 52 (Ro)(ENA) Ab, IgG 3 AU/mL (0-40); SSA 60 (Ro)(ENA) Ab, IgG 0 AU/mL (0-40); SSB (La)(ENA) Ab, IgG 0 AU/mL (0-40)
== END ==
LOC: REG 09:09
PROVIDERS: ATTENDING PHYSICIAN Internal Medicine Rheumatology; FAMILY PHYSICIAN Internal Medicine
DX: L88 Pyoderma gangrenosum (principal); M31.6 Other giant cell arteritis; I95.89 Other hypotension
CPT/HCPCS: 36415; 80053; 81003; 81015; 82533; 83516; 83735; 85025; 85652; 86038; 86140; 86160; 86235

== ENCOUNTER → 2024-02-06 11:15 | Outpatient (REF) | payer MEDICARE, SELFPAY | LOC: WOUND 11:15 | PROVIDERS: ATTENDING PHYSICIAN Surgery; FAMILY PHYSICIAN Internal Medicine | DX: L89.613 Pressure ulcer of right heel, stage 3 (principal); S41.111A Laceration without foreign body of right upper arm, initial encounter; I10 Essential (primary) hypertension; M31.6 Other giant cell arteritis; D64.9 Anemia, unspecified | CPT/HCPCS: 11042; 99213 ==

== ENCOUNTER → 2024-02-13 11:14 | Outpatient (REF) | payer MEDICARE, SELFPAY | LOC: WOUND 11:14 | PROVIDERS: ATTENDING PHYSICIAN Surgery; FAMILY PHYSICIAN Internal Medicine | DX: L89.613 Pressure ulcer of right heel, stage 3 (principal); S41.111A Laceration without foreign body of right upper arm, initial encounter; M31.6 Other giant cell arteritis; D64.9 Anemia, unspecified; I10 Essential (primary) hypertension; Z79.52 Long term (current) use of systemic steroids; X58.XXXA Exposure to other specified factors, initial encounter | CPT/HCPCS: 11042 ==

== ENCOUNTER → 2024-02-20 11:09 | Outpatient (REF) | payer MEDICARE, SELFPAY | LOC: WOUND 11:09 | PROVIDERS: ATTENDING PHYSICIAN Surgery; FAMILY PHYSICIAN Internal Medicine | DX: L89.613 Pressure ulcer of right heel, stage 3 (principal); S41.111A Laceration without foreign body of right upper arm, initial encounter; I10 Essential (primary) hypertension; M31.6 Other giant cell arteritis; D64.9 Anemia, unspecified; L88 Pyoderma gangrenosum; Z79.52 Long term (current) use of systemic steroids | CPT/HCPCS: 11042; 99213 ==

== ENCOUNTER → 2024-03-05 11:14 | Outpatient (REF) | payer MEDICARE, SELFPAY | LOC: WOUND 11:14 | PROVIDERS: ATTENDING PHYSICIAN Surgery; FAMILY PHYSICIAN Internal Medicine | DX: L89.613 Pressure ulcer of right heel, stage 3 (principal); S41.111A Laceration without foreign body of right upper arm, initial encounter; L97.221 Non-pressure chronic ulcer of left calf limited to breakdown of skin; I10 Essential (primary) hypertension; M31.6 Other giant cell arteritis; D64.9 Anemia, unspecified; L88 Pyoderma gangrenosum; X58.XXXA Exposure to other specified factors, initial encounter | CPT/HCPCS: 99213 ==

== ENCOUNTER → 2024-03-05 11:45 | Outpatient (REF) | payer MEDICARE, SELFPAY ==
[2024-03-05 12:30] LABS: % Basophils 0.4 % (0-2); % Eosinophils 0.4 % (0-6); % Immature Granulocytes 0.8 % (0-0.5); % Lymphocytes 8.8 % (20.5-51.1); % Monocytes 5.4 % (1.7-9.3); % Neutrophils 84.2 % (42.2-75.2); Absolute Eosinophils 0.1 10^3/uL (0-0.7); Absolute Immature Granulocytes 0.1 10^3/uL (0-0.05); Absolute Monocytes 0.6 10^3/uL (0.1-0.6); Absolute Neutrophils 9.4 10^3/uL (1.4-6.5); Hematocrit 34.5 % (37.0-47.0); Hemoglobin 11.3 g/dL (12.0-16.0); Mean Corp Hgb Conc. 32.8 g/dL (33.0-37.0); Mean Corpuscular Hgb 32.8 pg (27.0-31.0); Mean Platelet Volume 9.6 fL (7.4-10.4); Nucleated Red Blood Cells % 0 %; Platelet Count 283 10^3/uL (130-400); Red Blood Cell Count 3.45 10^6/uL (4.20-5.40); White Blood Cell Count 11.1 10^3/uL (4.8-10.8)
[2024-03-05 12:48] LABS: ALT (SGPT) < 10 U/L (0-35); AST (SGOT) 25 U/L (14-36); Albumin 4.2 g/dl (3.5-5.0); Alkaline Phosphatase 94 U/L (38-126); Blood Urea Nitrogen 23 mg/dl (7-17); Calcium 9.8 mg/dl (8.4-10.2); Carbon Dioxide 20 mmol/L (22-30); Chloride 108 mmol/L (98-107); Glucose 105 mg/dl (70-99); Potassium 4.8 mmol/L (3.5-5.1); Sodium 138 mmol/L (135-145); Total Bilirubin 0.6 mg/dl (0.2-1.3); Total Protein 6.7 g/dl (6.3-8.2); eGFR > 60.00
[2024-03-05 12:50] LABS: C-Reactive Protein < 5.00 mg/L (0.0-10.00)
[2024-03-05 13:06] LABS: Erythrocyte Sed Rate 29 mm/hour (0-20)
== END ==
LOC: REG 11:45
PROVIDERS: ATTENDING PHYSICIAN Internal Medicine Rheumatology
DX: M31.6 Other giant cell arteritis (principal)
CPT/HCPCS: 36415; 80053; 85025; 85652; 86140

== ENCOUNTER → 2024-03-26 10:56 | Outpatient (REF) | payer MEDICARE, SELFPAY | LOC: WOUND 10:56 | PROVIDERS: ATTENDING PHYSICIAN Surgery; FAMILY PHYSICIAN Internal Medicine | DX: L89.613 Pressure ulcer of right heel, stage 3 (principal); S41.111A Laceration without foreign body of right upper arm, initial encounter; L97.221 Non-pressure chronic ulcer of left calf limited to breakdown of skin; I10 Essential (primary) hypertension; M31.6 Other giant cell arteritis; D64.9 Anemia, unspecified; L88 Pyoderma gangrenosum; Z79.52 Long term (current) use of systemic steroids; X58.XXXA Exposure to other specified factors, initial encounter | CPT/HCPCS: 99213 ==

== ENCOUNTER → 2024-04-09 10:46 | Outpatient (REF) | payer MEDICARE, SELFPAY | LOC: WOUND 10:46 | PROVIDERS: ATTENDING PHYSICIAN Surgery | DX: L89.613 Pressure ulcer of right heel, stage 3 (principal); S41.111A Laceration without foreign body of right upper arm, initial encounter; L97.221 Non-pressure chronic ulcer of left calf limited to breakdown of skin; X58.XXXA Exposure to other specified factors, initial encounter | CPT/HCPCS: 99213 ==

== ENCOUNTER → 2024-04-23 08:48 | Outpatient (REF) | payer MEDICARE, SELFPAY ==
[2024-04-23 09:45] LABS: % Basophils 0.5 % (0-2); % Eosinophils 1.2 % (0-6); % Immature Granulocytes 0.5 % (0-0.5); % Lymphocytes 22.8 % (20.5-51.1); % Monocytes 10.1 % (1.7-9.3); % Neutrophils 64.9 % (42.2-75.2); Absolute Eosinophils 0.1 10^3/uL (0-0.7); Absolute Lymphocytes 1.7 10^3/uL (1.2-3.4); Absolute Monocytes 0.8 10^3/uL (0.1-0.6); Absolute Neutrophils 4.8 10^3/uL (1.4-6.5); Hematocrit 37.1 % (37.0-47.0); Hemoglobin 12.5 g/dL (12.0-16.0); Mean Corp Hgb Conc. 33.7 g/dL (33.0-37.0); Mean Corpuscular Hgb 34.4 pg (27.0-31.0); Mean Corpuscular Volume 102.2 fL (81.0-99.0); Nucleated Red Blood Cells % 0 %; Platelet Count 218 10^3/uL (130-400); Red Blood Cell Count 3.63 10^6/uL (4.20-5.40); White Blood Cell Count 7.5 10^3/uL (4.8-10.8)
[2024-04-23 10:24] LABS: ALT (SGPT) 24 U/L (0-35); AST (SGOT) 59 U/L (14-36); Albumin 4.5 g/dl (3.5-5.0); Alkaline Phosphatase 101 U/L (38-126); Blood Urea Nitrogen 23 mg/dl (7-17); Calcium 10.4 mg/dl (8.4-10.2); Carbon Dioxide 20 mmol/L (22-30); Chloride 111 mmol/L (98-107); Glucose 89 mg/dl (70-99); Iron 151 ug/dl (37-170); Potassium 4.7 mmol/L (3.5-5.1); Sodium 140 mmol/L (135-145); Total Protein 6.9 g/dl (6.3-8.2); eGFR > 60.00
[2024-04-23 10:37] LABS: Percent Saturation 62 % (20-50); Total Iron Binding Capacity 241 ug/dl (265-497)
[2024-04-23 10:52] LABS: C-Reactive Protein < 5.00 mg/L (0.0-10.00)
[2024-04-23 11:15] LABS: Erythrocyte Sed Rate 17 mm/hour (0-20)
== END ==
LOC: REG 08:48
PROVIDERS: ATTENDING PHYSICIAN Internal Medicine; REFERRING PHYSICIAN Internal Medicine
DX: M31.6 Other giant cell arteritis (principal); D64.9 Anemia, unspecified
CPT/HCPCS: 36415; 80053; 83540; 83550; 85025; 85652; 86140

== ENCOUNTER → 2024-04-23 09:05 | Outpatient (REF) | payer MEDICARE, SELFPAY | LOC: WOUND 09:05 | PROVIDERS: ATTENDING PHYSICIAN Surgery; FAMILY PHYSICIAN Internal Medicine | DX: L89.613 Pressure ulcer of right heel, stage 3 (principal); I16.9 Hypertensive crisis, unspecified; L97.221 Non-pressure chronic ulcer of left calf limited to breakdown of skin; I10 Essential (primary) hypertension; M31.6 Other giant cell arteritis; D64.9 Anemia, unspecified; L88 Pyoderma gangrenosum; Z79.52 Long term (current) use of systemic steroids; S41.1 Open wound of upper arm; X58.XXXS Exposure to other specified factors, sequela | CPT/HCPCS: 99213 ==

== ENCOUNTER 2024-04-23 10:08 | Emergency (ER) | payer MEDICARE, SELFPAY ==
[2024-04-23 10:23] VITALS: BP 183/94
--- NOTE | 2024-04-23 11:05 | ED.GENMED ---
History of Present Illness
General
Chief Complaint: Blood Pressure Problem
Source: patient and spouse
Exam Limitations: none
Time Seen by Provider: 04/23/24 10:43
Nursing documentation reviewed up to this point in time: agreed with
History of Present Illness
History of Present Illness:
89 yo female w h/o HTN, HLD, giant cell arteritis, chronic wounds LLE and R forearm, followed [facility], has weekly VN. Sent here from [facility] for elevated BP of 215/ and 185/ Pt denies H/A, CP, SOB. Wants to leave.
Past History
Past History
ED Past Medical History: HTN, Hypercholesterolemia, Other (Giant cell arteritis) and Other ( rheumatic fever, hyperthyroidism, macular degeneration, cataracts, ocular migraine.)
ED Past Surgical History: Orthopedic (Bilateral hip replacements) and Urological (Right Kidney wired in place)
Social History
Tobacco: Non-smoker
Alcohol: Daily (seaXiaohongshu's 7 2-3 oz)
Personal:
Living: with family
Family History
Family History: Other (Breast cancer. Father with a stroke)
Review of Systems
Review of Systems
Allergies reviewed?: Yes
All Other Systems: ROS reviewed and negative except as documented in HPI and ROS
Constitutional: Denies fever
EENT: Reports other (poor vision)
Respiratory: Denies trouble breathing
Cardiac: Denies chest pain or palpitations
ABD/GI: Denies abdominal pain or nausea
: Denies dysuria, difficulty voiding or urgency
Skin: Reports other (chronic wound LLE, right arm)
Neurological: Reports other (chronic balance problems); Denies dizzy or headache
Phy Exam
Physical Exam
Physical Exam:
GENERAL: No acute distress. A&Ox3.
CONSTITUTIONAL: Afebrile.
EYES: Clear, conjunctivae normal
Neck: Supple
ENMT: moist mucus membranes, Pharynx nl
RESPIRATORY: Regular respirations, nonlabored, lungs clear.
CARDIOVASCULAR: Regular rate and rhythm, no murmurs, no rubs.
GI: Soft, nontender, normal BS
MUSCULOSKELETAL: Moves with ease. Well perfused.
SKIN: Warm, dry, pink
PSYCH: Normal mood and affect. Well kept, interactive and appropriate
NEUROLOGIC: Awake, alert and oriented. No focal neurological deficits
Course
Orders/Labs/Results
Orders:
Orders
04/23/24 10:27
Electrocardiogram (*1) Urgent
Reason for Study: Hypertension, Benign
04/23/24 10:28
EKG- Treatment ONCE
Vital Signs
Initial and Last Documented VS:
Initial Vital Signs
Temp Pulse Resp BP Pulse Ox
97.7 F 68 16 183/94 99
04/23/24 10:23 04/23/24 10:23 04/23/24 10:23 04/23/24 10:23 04/23/24 10:23
Last Documented Vital Signs
Temp Pulse Resp BP Pulse Ox
97.7 F 68 16 161/80 99
04/23/24 10:23 04/23/24 10:23 04/23/24 10:23 04/23/24 11:26 04/23/24 10:23
MDM/Problems Addressed
Differential Diagnosis Includes:
hypertension, white coat syndrome, anxiety
MDM/Problems Addressed:
89 yo female w h/o HTN, HLD, giant cell arteritis, chronic wounds LLE and R forearm, followed [facility], has weekly VN. Sent here from [facility] for elevated BP of 215/ and 185/ Pt denies H/A, CP, SOB. Wants to leave.
EKG: NSR
Kidney function normal on 04/23 labs, no need to repeat
BP for this examiner 161/80
Pt has BP cuff at home and will check pressures daily and discuss with PCP
Pt stable for discharge
*Critical Care Note
Total Time (30-74mins, 75-104mins- exclusive of procedures): Not Applicable
ED Attending Note
-
Portions of this chart may have been created with voice recognition software.� Occasional wrong word or��sound alike� substitutions may have occurred due to the inherent limitations of voice recognition software.
Discharge Plan
Departure
Patient Disposition: Home (Routine Discharge)
Date of Disposition: 04/23/24
Time of Disposition: 11:16
Patient with high blood pressure during this ER visit?: Yes
Condition: Good
Discharge Problem:
Hypertension
Instructions: High Blood Pressure (DC)
Prescriptions:
No Action
simvastatin 40 MG tablet
40 mg PO QPM
alendronate 70 MG tablet
70 mg PO WE@0800
aspirin 81 mg Tablet,Delayed Release (Dr/Ec)
81 mg PO DAILY
dorzolamide-timolol 22.3-6.8 mg/mL drops
1 drp BOTH EYES BID
metoprolol succinate 25 MG tablet extended release 24 hr
12.5 mg PO DAILY
therapeutic multivitamin Tablet
1 tab PO DAILY
Rhopressa 0.02 % Drops
1 drp BOTH EYES HS
acetaminophen [Tylenol Extra Strength] 500 mg Tablet
1,000 mg PO Q6H
ascorbic acid (vitamin C) [Vitamin C] 500 mg Tablet
500 mg PO DAILY
melatonin 1 mg Tablet
1 mg PO HS
pantoprazole 40 mg tablet,delayed release (DR/EC)
40 mg PO DAILY
polyethylene glycol 3350 [HealthyLax] 17 gram Powder In Packet
17 g PO DAILY Qty: 0 0RF
prednisone 20 mg Tablet
40 mg PO DAILY Qty: 30 0RF
sodium bicarbonate 650 mg Tablet
325 mg PO DAILY Qty: 60 0RF
risperidone 0.25 mg Tablet
0.5 mg PO HS Qty: 30 0RF
Referrals:
Curtis Mary MD [Family Provider] - As needed
Activity Restrictions/Additional Instructions:
As we discussed, take your temperature at home under calm circumstances twice a day for the next week and record and discussed with your primary physician.
Your last BP here is 161/80
Interventions
Interventions:
*Risk Screen - Suicide Last Done: 04/23/24 11:23
*General Assessment Last Done: 04/23/24 11:23
*Neglect/Abuse Screening Last Done: 04/23/24 11:23
ED- Fall Risk Assessment Last Done: 04/23/24 11:23
*ED COVID-19 Vaccine History Last Done: 04/23/24 11:23
*Nursing Disposition Last Done: 04/23/24 11:26
ED- Cardiac Assessment Last Done: 04/23/24 11:23
ED- Neurological Assessment Last Done: 04/23/24 11:23
ED- Pulmonary Assessment Last Done: 04/23/24 11:23
Discharge Date and Time
Discharge Date/Time: 04/23/24 11:27
Print Language: AZERI
[2024-04-23 11:26] VITALS: BP 161/80
== END 2024-04-23 11:27 | disposition home or self-care (01) ==
LOC: EMR 10:08
PROVIDERS: EMERGENCY PHYSICIAN Emergency Medicine; FAMILY PHYSICIAN Internal Medicine
DX: I10 Essential (primary) hypertension (principal); E78.00 Pure hypercholesterolemia, unspecified; M31.6 Other giant cell arteritis; Z80.3 Family history of malignant neoplasm of breast; Z82.3 Family history of stroke; Z96.643 Presence of artificial hip joint, bilateral; E05.90 Thyrotoxicosis, unspecified without thyrotoxic crisis or storm; H35.30 Unspecified macular degeneration
CPT/HCPCS: 99283; 93005

== ENCOUNTER → 2024-05-19 14:01 | Outpatient (REF) | payer MEDICARE, SELFPAY | LOC: WOUND 14:01 | PROVIDERS: ATTENDING PHYSICIAN Surgery; FAMILY PHYSICIAN Internal Medicine | DX: L89.613 Pressure ulcer of right heel, stage 3 (principal); I16.9 Hypertensive crisis, unspecified; S41.111A Laceration without foreign body of right upper arm, initial encounter; L97.221 Non-pressure chronic ulcer of left calf limited to breakdown of skin; I10 Essential (primary) hypertension; M31.6 Other giant cell arteritis; D64.9 Anemia, unspecified; L88 Pyoderma gangrenosum; Z79.52 Long term (current) use of systemic steroids; X58.XXXA Exposure to other specified factors, initial encounter | CPT/HCPCS: 99213 ==

== ENCOUNTER → 2024-06-16 10:40 | Outpatient (REF) | payer MEDICARE, SELFPAY | LOC: WOUND 10:40 | PROVIDERS: ATTENDING PHYSICIAN Surgery; FAMILY PHYSICIAN Internal Medicine | DX: L89.613 Pressure ulcer of right heel, stage 3 (principal); I16.9 Hypertensive crisis, unspecified; S41.111A Laceration without foreign body of right upper arm, initial encounter; X58.XXXA Exposure to other specified factors, initial encounter; L97.221 Non-pressure chronic ulcer of left calf limited to breakdown of skin; I10 Essential (primary) hypertension; M31.6 Other giant cell arteritis; D64.9 Anemia, unspecified; L88 Pyoderma gangrenosum; Z79.52 Long term (current) use of systemic steroids | CPT/HCPCS: 99212 ==

== ENCOUNTER → 2024-08-18 11:27 | Outpatient (REF) | payer MEDICARE, SELFPAY ==
[2024-08-18 12:32] LABS: % Basophils 0.5 % (0-2); % Eosinophils 2.6 % (0-6); % Immature Granulocytes 0.3 % (0-0.5); % Monocytes 7.8 % (1.7-9.3); % Neutrophils 80.8 % (42.2-75.2); Absolute Basophils 0.1 10^3/uL (0-0.2); Absolute Eosinophils 0.2 10^3/uL (0-0.7); Absolute Lymphocytes 0.8 10^3/uL (1.2-3.4); Absolute Monocytes 0.7 10^3/uL (0.1-0.6); Absolute Neutrophils 7.6 10^3/uL (1.4-6.5); Hematocrit 35.8 % (37.0-47.0); Mean Corp Hgb Conc. 33.5 g/dL (33.0-37.0); Mean Corpuscular Hgb 34.2 pg (27.0-31.0); Nucleated Red Blood Cells % 0 %; Platelet Count 269 10^3/uL (130-400); Red Blood Cell Count 3.51 10^6/uL (4.20-5.40); Red Cell Dist. Width 11.9 % (11.5-14.5); White Blood Cell Count 9.4 10^3/uL (4.8-10.8)
[2024-08-18 12:47] LABS: ALT (SGPT) 21 U/L (0-35); AST (SGOT) 46 U/L (14-36); Albumin 4.3 g/dl (3.5-5.0); Alkaline Phosphatase 250 U/L (38-126); Blood Urea Nitrogen 26 mg/dl (7-17); Carbon Dioxide 24 mmol/L (22-30); Chloride 105 mmol/L (98-107); Glucose 108 mg/dl (70-99); Potassium 4.9 mmol/L (3.5-5.1); Sodium 141 mmol/L (135-145); Total Bilirubin 0.6 mg/dl (0.2-1.3); Total Protein 6.9 g/dl (6.3-8.2); eGFR > 60.00
[2024-08-18 14:03] LABS: Erythrocyte Sed Rate 33 mm/hour (0-20)
== END ==
LOC: REG 11:27
PROVIDERS: ATTENDING PHYSICIAN Internal Medicine; PRIMARYCARE PHYSICIAN Internal Medicine
DX: M31.6 Other giant cell arteritis (principal)
CPT/HCPCS: 36415; 80053; 85025; 85652; 86140

== ENCOUNTER → 2024-09-24 10:23 | Outpatient (REF) | payer MEDICARE, SELFPAY ==
[2024-09-24 11:56] LABS: Alkaline Phosphatase, Total 442 U/L (38-126)
[2024-09-24 12:09] LABS: GGTP 579 U/L (12-43)
[2024-09-24 12:13] LABS: Erythrocyte Sed Rate 44 mm/hour (0-20)
[2024-09-24 14:14] LABS: Alk Phos After Heat 170; Alkaline Phosphatase Percent 38.46
== END ==
LOC: REG 10:23
PROVIDERS: ATTENDING PHYSICIAN Internal Medicine; FAMILY PHYSICIAN Internal Medicine
DX: R74.8 Abnormal levels of other serum enzymes (principal); M31.6 Other giant cell arteritis
CPT/HCPCS: 36415; 82977; 84078; 85652; 86140